=== PATIENT | female | born 1940 | race Caucasian/White ===

== ENCOUNTER 2017-10-14 11:56 | Outpatient (CLI) | payer MEDICARE, OTHER ==
[~2017-10-14] VITALS: Ht 162.6 cm; Wt 77.6 kg
[~2017-10-14 11:56] MED LIST: GLUC-132 PO; GLUC500C2 PO; MULT-1029 PO; OMG1KC PO
[2017-10-14] MEDS ORDERED: TURM500C4 PO (12:09)
[2017-10-14] MEDS ORDERED: GLUC-219 PO (12:09)
[2017-10-14] MEDS ORDERED: CHOL100045 PO (12:09)
[2017-10-14] MEDS ORDERED: VIT1CAPS9 PO (12:09)
[2017-10-14 12:16] VITALS: BP 154/91
[2017-10-14 12:52] LABS: BASOPHILS % (AUTO) 1 % (0-10); EOSINOPHILS # (AUTO) 0.3 10^3/uL (0.0-0.3); EOSINOPHILS % (AUTO) 4 % (0-10); HEMATOCRIT 44 % (35-52); HEMOGLOBIN 14.7 G/DL (11.5-16.0); LYMPHOCYTES # (AUTO) 1.5 X 10^3 (1.0-4.0); LYMPHOCYTES % (AUTO) 20 % (12-44); MEAN CORPUSCULAR HEMOGLOBIN 30 PG (25-34); MEAN CORPUSCULAR HGB CONC 33 G/DL (32-36); MEAN CORPUSCULAR VOLUME 91 FL (80-99); MEAN PLATELET VOLUME 9.3 FL (7.4-10.4); MONOCYTES # (AUTO) 0.6 X 10^3 (0.0-1.0); MONOCYTES % (AUTO) 8 % (0-12); NEUTROPHILS # (AUTO) 5.2 X 10^3 (1.8-7.8); NEUTROPHILS % (AUTO) 68 % (42-75); PLATELET COUNT 204 10^3/uL (130-400); RED BLOOD COUNT 4.86 10^6/uL (4.35-5.85); RED CELL DISTRIBUTION WIDTH 13.6 % (10.0-14.5); WHITE BLOOD COUNT 7.6 10^3/uL (4.3-11.0)
[2017-10-14 12:53] LABS: BILIRUBIN,URINE NEGATIVE (NEGATIVE); CLARITY,URINE CLEAR; COLOR,URINE YELLOW; GLUCOSE, URINE (UA) NEGATIVE (NEGATIVE); KETONES,URINE NEGATIVE (NEGATIVE); LEUKOCYTE ESTERASE ,URINE 3+ (NEGATIVE); NITRITE,URINE NEGATIVE (NEGATIVE); PH,URINE 6.5 (5-9); PROTEIN,URINE NEGATIVE (NEGATIVE); UROBILINOGEN,URINE NORMAL (NORMAL)
--- NOTE | 2017-10-14 13:07 | Diagnostic Imaging Report ---
INDICATION: Preop for knee surgery. TIME OF EXAM 1:08 PM FINDINGS: The heart size is normal. The lungs are clear. No pleural effusion or pneumothorax is identified. The pulmonary vascularity is normal. IMPRESSION: No acute abnormality detected. Dictated by: Dictated on workstation # [id number]
[2017-10-14 13:10] LABS: BUN/CREATININE RATIO 22; CALCIUM 9.7 MG/DL (8.5-10.1); CARBON DIOXIDE 25 MMOL/L (21-32); CHLORIDE 107 MMOL/L (98-107); CREATININE SERUM 0.79 MG/DL (0.60-1.30); GFR ESTIMATED > 60; GLUCOSE 86 MG/DL (70-105); POTASSIUM 4.4 MMOL/L (3.6-5.0); SODIUM 142 MMOL/L (135-145)
[2017-10-14 13:19] LABS: BACTERIA,URINE TRACE /HPF
== END 2017-10-14 12:45 | disposition home or self-care (01) ==
LOC: PREOP 11:56
PROVIDERS: ATTEND Orthopaedic Surgery
DX: Z01.810 Encounter for preprocedural cardiovascular examination (principal); Z01.811 Encounter for preprocedural respiratory examination; Z01.812 Encounter for preprocedural laboratory examination; Z11.2 Encounter for screening for other bacterial diseases; M17.12 Unilateral primary osteoarthritis, left knee; R53.83 Other fatigue
CPT/HCPCS: 36415; 71046; 80048; 81000; 85025; 85610; 86850; 86900; 86901; 87081; 93005

== ENCOUNTER 2017-10-28 06:15 | Inpatient (IN) | payer MEDICARE, OTHER ==
[~2017-10-28] VITALS: Ht 162.6 cm; Wt 77.6 kg
[~2017-10-28 06:15] MED LIST changes: +CHOL100045 PO; +GLUC-219 PO; +TURM500C4 PO; +VIT1CAPS9 PO
[2017-10-28 06:40] VITALS: BP 163/84
[2017-10-28] MEDS ORDERED: CELECOXIB 100 MG (CeleBREX) CAP PO ONE ×2 (06:40→07:15)
[2017-10-28] MEDS ORDERED: GABAPENTIN 600 MG (NEURONTIN) TAB ONE (06:40)
[2017-10-28] MEDS ORDERED: ONDANSETRON 4 MG/2 ML (SDV) Z0FRAN ONE ×2 (06:40→06:52)
[2017-10-28] MEDS ORDERED: ceFAZolin 2 GM IV Premixed 50 ML ONE (06:41)
[2017-10-28] MEDS ORDERED: DEXAMETHASONE 4 MG/ML SDV (DECADRON) ONE (06:41)
[2017-10-28] MEDS ORDERED: LIDOCAINE PF 2% 5 ML (XYLOCAINE) VIAL ONE (06:52)
[2017-10-28] MEDS ORDERED: proPOfol 200 MG/20 ML (DIPRIVAN) VIAL IV ONE (06:52)
[2017-10-28] MEDS ORDERED: SEVOFLURANE (ULTANE) 15 ML INHAL SOLN ONE ×2 (06:52→10:25)
[2017-10-28] MEDS ORDERED: DEXAMETHASONE 10 MG/ML (DECADRON) 1 ML VIAL ONE (06:52)
[2017-10-28] MEDS ORDERED: GENTAMICIN 40 MG/ML 2 ML INJ SDV ONE (06:52)
[2017-10-28] MEDS ORDERED: NEO/POLY/BAC (NEOSPORIN) OINT 15 GM TUBE ONE (06:52)
[2017-10-28] MEDS ORDERED: fentaNYL INJECTION 100 MCG/2 ML AMP ONE ×2 (06:52→08:19)
[2017-10-28] MEDS ORDERED: MIDAZOLAM 2 MG/2 ML (VERSED) VIAL ONE (06:53)
[2017-10-28] MEDS ORDERED: ROPIVACAINE 5MG/ML 30ML VIAL ONE (06:59)
[2017-10-28] MEDS: LACTATED RINGERS 1,000 ML IV PRN ×2 (07:11→08:53)
[2017-10-28] MEDS ORDERED: GABAPENTIN 600 MG (NEURONTIN) TAB PO ONE (07:15)
[2017-10-28] MEDS ORDERED: ONDANSETRON 4 MG/2 ML (SDV) Z0FRAN IVP ONE (07:15)
[2017-10-28] MEDS ORDERED: DEXAMETHASONE 4 MG/ML SDV (DECADRON) IV ONE (07:15)
[2017-10-28] MEDS ORDERED: ceFAZolin 2 GM/50 ML NS 50 ML IV ONE (07:15)
[2017-10-28] MEDS ORDERED: ceFAZolin 2 GM IV Premixed 50 ML IV ONE (07:30)
[2017-10-28] MEDS ORDERED: BISACODYL 10 MG SUPP (DULCOLAX) PR PRN (07:45)
[2017-10-28] MEDS ORDERED: diphenhydrAMINE 50 MG/ML INJ (BENADRYL) IV PRN (07:45)
[2017-10-28] MEDS ORDERED: PROMETHAZINE INJ 25 MG/ML (PHENERGAN) AMP IVP PRN (07:45)
[2017-10-28] MEDS ORDERED: morphine INJ 10 MG/ML 1ML (SYR OR VIAL) IVP PRN ×2 (07:45→10:30)
--- NOTE | 2017-10-28 07:46 | Progress Note-Pre Operative ---
Pre-Operative Progress Note H&P Reviewed The H&P was reviewed, patient examined and no changes noted. Date Seen by Provider: Oct 28, 2017 Time Seen by Provider: 07:40 Date H&P Reviewed: Oct 28, 2017 Time H&P Reviewed: 07:40 Pre-Operative Diagnosis: Primary osteoarthritis Left knee AYO WOODSON DO Oct 28, 2017 7:46 am
[2017-10-28] MEDS ORDERED: INTRA-ARTICULAR IU ONE ×4 (08:00)
[2017-10-28] MEDS ORDERED: ASPIRIN E.C. 325 MG (ECOTRIN) TABLET PO SCH (09:00)
[2017-10-28] MEDS ORDERED: TRANEXAMIC ACID 100 MG/ML 10 ML INJECTION IV ONE (09:27)
--- NOTE | 2017-10-28 09:58 | Progress Note-Post Operative ---
Post-Operative Progess Note Surgeon (s)/Area Development Consultant (s) Surgeon AYO WOODSON DO Area Development Consultant: Abhishek Finch SUPERVISOR DRAWING-Jimena Pre-Operative Diagnosis Primary osteoarthritis Left knee Post-Operative Diagnosis same Procedure & Operative Findings Date of Procedure 10/28/17 Procedure Performed/Findings Left Total Knee Arthroplasty Anesthesia Type General with femoral nerve block Estimated Blood Loss Estimated blood loss (mL): 250 ml Specimens/Packing Specimens Removed none AYO WOODSON DO Oct 28, 2017 9:58 am
[2017-10-28] MEDS ORDERED: ONDANSETRON 4 MG/2 ML (SDV) Z0FRAN IVP PRN (10:30)
[2017-10-28] MEDS ORDERED: HYDROmorphone (DILAUDID) 2 MG/ML VIAL IVP PRN (10:30)
--- NOTE | 2017-10-28 11:36 | Diagnostic Imaging Report ---
INDICATION: Status post left total knee arthroplasty. TIME OF EXAMINATION: 10:32 a.m. FINDINGS: Two views of the left knee demonstrate postoperative changes of total knee arthroplasty. The prosthetic elements are in good position. No fracture or loosening is seen. There are overlying skin gloria noted. IMPRESSION: Satisfactory postop appearance to the left knee. Dictated by: Dictated on workstation # [id number]
[2017-10-28 11:45] VITALS: BP 154/70
[2017-10-28] MEDS ORDERED: D5 1/2 NS 1000 ML IV SOLUTION 1,000 ML IV ONE (12:04)
[2017-10-28] MEDS: D5 1/2 NS 1000 ML IV SOLUTION 1,000 ML IV SCH ×2 (12:10→20:50)
[2017-10-28] MEDS: ASPIRIN E.C. 81 MG (ECOTRIN) TAB PO SCH (13:35)
[2017-10-28] MEDS: HYDROcodone/APAP 10 MG/325 MG (LORTAB) TAB PO PRN ×2 (13:35→22:45)
[2017-10-28] MEDS: ceFAZolin 2 GM IV Premixed 50 ML IV SCH ×2 (15:00→22:39)
[2017-10-28 16:10] VITALS: BP 130/64
[2017-10-28 20:40] VITALS: BP 120/60
[2017-10-28 23:17] VITALS: BP 121/59
[2017-10-29] MEDS: D5 1/2 NS 1000 ML IV SOLUTION 1,000 ML IV SCH ×2 (00:54→13:19)
--- NOTE | 2017-10-29 02:38 | OPERATIVE REPORT ---
DATE OF SERVICE: PREOPERATIVE DIAGNOSIS: Primary osteoarthritis, left knee. POSTOPERATIVE DIAGNOSIS: Primary osteoarthritis, left knee. PROCEDURE: Left total knee arthroplasty. SURGEON: Ayo Woodson DO. HEALTH COORDINATOR: IFEOMA Reeves. SURGICAL INSPECTOR AIR CARRIER DUTIES: Abhishek Finch, certified surgical tech/first assistant was utilized throughout the entire procedure for patient positioning, retraction of soft tissues, placement of metallic implants, wound closure, dressing application, and patient transfer. ANESTHESIA: General with femoral nerve block. ESTIMATED BLOOD LOSS: 250 mL. COMPLICATIONS: None. INDICATIONS OF FINDINGS: The patient is a 77-year-old female seen with chief complaint of progressive left knee pain with a varus deformity of both the right and left knee. X-rays reveals severe advanced primary osteoarthritis, left knee. The patient was taken to surgery where a total knee arthroplasty was performed on the left without complication utilizing the Biomet Psonarguard total knee system with a press-fit 62.5 mm femoral component, a 71 mm cemented fixed I-beam tibial component, a 12 mm anterior stabilized tibial bearing implant with a 31 mm 3-pronged all-polyethylene cemented standard patellar component. Palacos bone cement with gentamicin was used. PROCEDURE IN DETAIL: The patient was seen by anesthesia preoperatively and under ultrasound guidance, a femoral nerve block was performed on the left to decrease postop pain and decrease the amount of medication required during the surgical procedure. The patient was transported to the operating room where general inhalation anesthetic was administered. A well-padded pneumatic tourniquet was placed about the upper aspect of left thigh. A ChloraPrep and sterile drape to left lower extremity was performed. The left leg was elevated, exsanguinated and the tourniquet was inflated to 300 mmHg pressure. An anterior longitudinal midline incision was made over the anterior surface of the left knee. The incision was deepened through a medial parapatellar incision. The patella was subluxed laterally. Osteophytes from the distal femur and the proximal medial tibia were removed with a bone rongeur. Remnants of the medial and lateral menisci were excised. A fire pilot hole was then drilled in the distal femur. An intramedullary diana was inserted. Utilizing a 6 degree valgus cutting angle, a distal femoral cutting guide was assembled and distal femoral osteotomy was completed. The distal femur was sized to a 62.5 mm femoral component. A 4 way cutting block was assembled. Anterior, posterior, and chamfer cuts to the distal femur were made. The tibia was subluxed anteriorly. A fire pilot hole was then drilled in the proximal tibia. An intramedullary diana was inserted, measuring off the exposed bone of the proximal medial tibia. A proximal tibial cutting guide was assembled and a proximal tibial osteotomy was completed. The proximal tibia was sized to a 71 mm component. The knee was taken to full extension with a 10 mm spacer. The patient continued to have a slight amount of mismatch in the space between the medial and lateral compartment. The proximal tibial cutting guide was assembled and a repeat cut through the proximal medial tibia was performed. The proximal tibia was then rasped. The knee could then be fully extended with no varus valgus instability and symmetric balancing. Osteophytes from the rim of the patella were removed with a bone rongeur. The posterior aspect of the patella was resected through a cutting guide and drilled through a drill guide. Provisional components were inserted. The knee was cycled through a range of motion. Rotation of the tibial component was noted marked on the proximal tibia. The proximal tibia was then broached to accept the I-beam stem portion of the tibial implant. The bony surfaces were irrigated extensively with normal saline solution. Palacos bone cement was then mixed. This was then pressurized in the proximal tibia and the tibial component was cemented in place. The femoral component was press-fit in place. The knee was taken into full extension with a provisional tibial bearing implant. The patellar component was cemented in place. Excess cement was removed. The cement was allowed to set. The knee again was cycled through a range of motion was found to be stable with a 12 mm tibial bearing implant. The provisional implant was removed. The 12 mm anterior stabilized tibial bearing implant was then inserted and locked anteriorly with a locking bar. The knee again was cycled through a range of motion with full extension noted and no evidence of instability in midrange flexion or full flexion. The tourniquet was released. Hemostasis was obtained with electrocautery. The knee was placed in 90 degrees of flexion. The medial retinaculum was closed with multiple interrupted [id number] sutures of #1 Vicryl reinforced with a running suture of #1 Stratafix. Subcutaneous tissues were closed in layers with 0 and 2-0 Vicryl suture. The skin was closed with gloria. An Adaptic Neosporin bulky dressing was placed about the left knee. The patient was awakened and was transferred to postoperative recovery with anesthesia personnel present in satisfactory condition. Job ID: [id number] DocumentID: [id number] Dictated Date: 10/28/2017 15:42:11 Lumber Salvager Date: 10/29/2017 00:38:18 Dictated By: AYO WOODSON DO
[2017-10-29 04:00] VITALS: BP 121/59
[2017-10-29 06:28] LABS: HEMOGLOBIN 11.6 G/DL (11.5-16.0); MEAN PLATELET VOLUME 9.8 FL (7.4-10.4); RED BLOOD COUNT 3.79 10^6/uL (4.35-5.85); RED CELL DISTRIBUTION WIDTH 13.3 % (10.0-14.5); WHITE BLOOD COUNT 13.6 10^3/uL (4.3-11.0)
[2017-10-29 06:58] LABS: BUN/CREATININE RATIO 19; CALCIUM 8.4 MG/DL (8.5-10.1); CARBON DIOXIDE 23 MMOL/L (21-32); CHLORIDE 105 MMOL/L (98-107); CREATININE SERUM 0.85 MG/DL (0.60-1.30); GFR ESTIMATED > 60; GLUCOSE 199 MG/DL (70-105); POTASSIUM 4.2 MMOL/L (3.6-5.0); SODIUM 139 MMOL/L (135-145)
--- NOTE | 2017-10-29 06:58 | Progress Note (SOAP) ---
Subjective Date Seen by Provider: Oct 29, 2017 Time Seen by Provider: 06:57 Subjective/Events-last exam Currently no complaints. POD #1 s/p left TKA. Daughters at bedside. Pain controlled and eating breakfast. Objective Exam Vital Signs Date Time Temp Pulse Resp B/P (MAP) Pulse Ox O2 Delivery O2 Flow Rate FiO2 10/29/17 04:00 97.9 90 18 121/59 (79) 95 Room Air 10/28/17 23:17 97.1 92 18 121/59 (79) 96 Room Air 10/28/17 20:40 96.5 89 18 120/60 (80) 95 Room Air 10/28/17 20:15 Room Air 10/28/17 16:10 97.8 87 18 130/64 (86) 93 Room Air 10/28/17 12:00 Nasal Cannula 2.00 10/28/17 11:45 96.4 99 16 154/70 (98) 96 Nasal Cannula 2.00 I & O 10/29/17 07:00 Intake Total 4060 ml Output Total 250 ml Balance 3810 ml Capillary Refill : Less Than 3 Seconds General Appearance: No Apparent Distress Extremity: Normal Capillary Refill, Normal Inspection, Normal Range of Motion, No Calf Tenderness, No Pedal Edema Neurologic/Psychiatric: Alert, Oriented x3, No Motor/Sensory Deficits, Normal Mood/Affect Skin: Normal Color, Warm/Dry (dressing left knee CDI) Results Lab Laboratory Tests 10/29/17 05:35: White Blood Count 13.6H, Red Blood Count 3.79L, Hemoglobin 11.6, Hematocrit 35, Mean Corpuscular Volume 92, Mean Corpuscular Hemoglobin 31, Mean Corpuscular Hemoglobin Concent 33, Red Cell Distribution Width 13.3, Platelet Count 193, Mean Platelet Volume 9.8 Assessment/Plan Assessment/Plan Assess & Plan/Chief Complaint A: s/p left TKA P: Start physical therapy and CPM. enrollment services dean to eval for home with home healthcare vs IRF Clinical Quality Measures DVT/VTE Risk/Contraindication: Risk Factor Score Per Nursin RFS Level Per Nursing on Admit: 4+=Very High TERESA FRANCIS APRN Oct 29, 2017 6:58 am
[2017-10-29] MEDS: ASPIRIN E.C. 81 MG (ECOTRIN) TAB PO SCH (07:58)
[2017-10-29] MEDS: HYDROcodone/APAP 10 MG/325 MG (LORTAB) TAB PO PRN ×2 (07:58→15:25)
[2017-10-29] MEDS: KETOROLAC 15 MG/ML VIAL IVP PRN ×2 (07:59→15:25)
[2017-10-29] MEDS: ENOXAPARIN 40 MG/0.4 ML (LOVENOX) SYR SC SCH (07:59)
[2017-10-29 08:00] VITALS: BP 125/58
[2017-10-29] MEDS ORDERED: SENNA W/DOCUSATE (SENOKOT S) TABLET PO SCH (09:00)
--- NOTE | 2017-10-29 09:56 | Physical Therapy Evaluation ---
PT Evaluation-General Medical Diagnosis Admission Date Oct 28, 2017 at 06:15 Medical Diagnosis: osteoarthritis Onset Date: Oct 28, 2017 Therapy Diagnosis Therapy Diagnosis: debility Height/Weight Height (Feet): 5 Height (Inches): 4.00 Weight (Pounds): 171 Weight (Ounces): 0.0 Precautions Precautions/Isolations: Standard Precautions Weight Bear Status Right Lower Extremity: Right Full Weight Bearing Left Lower Extremity: Left Full Weight Bearing Referral Physician: Denita Reason for Referral: Evaluation/Treatment Medical History Pertinent Medical History: Arthritis Current History s/p elective right TKR Reviewed History: Yes Social History Home: Single Level Current Living Status: Alone Entry Into Home: Stairs With Railing PT Steps Into Home: 3 Prior/Core FIM Prior Level of Function Functional [place] Measure 0=Not Assessed/NA 4=Minimal Assistance 1=Total Assistance 5=Supervision or Setup 2=Maximal Assistance 6=Modified [place] 3=Moderate Assistance 7=Complete [place] Bed Mobility: 7 Transfers (B,C,W/C) (FIM): 7 Gait: 7 Locomotion: 7 PT Evaluation-Current Subjective Patient agrees to PT. Pain Numeric Pain Scale: 7 Location: Right Location Body Site: Knee Pain Description: Acute Objective Patient Orientation: Normal For Age Problem Solving: Good Attachments: IV ROM/Strength ROM Lower Extremities right knee flexion 64 degrees AROM/-5 AROM extension left LE WNL Strength Lower Extremities right knee flexion/extension 3/5; hip flexion 4/5; DF/PF 4/5 left knee flexion/extension 4/5; hip flexion 4/5; DF/PF 4/5 Integumentary/Posture Integumentary refer to nursing notes Bowel Incontinence: No Bladder Incontinence: No Posture WFL Neuromuscular (Tone, Coordination, Reflexes) grossly intact Sensory Vision: Wears Glasses Hearing: Functional Sensation Right Lower Extremit: Intact Sensation Left Lower Extremity: Intact Transfers Functional [place] Measure 0=Not Assessed/NA 4=Minimal Assistance 1=Total Assistance 5=Supervision or Setup 2=Maximal Assistance 6=Modified [place] 3=Moderate Assistance 7=Complete [place] Transfers (B, C, W/C) (FIM): 5 Scootin Rollin Supine to/from Sit: 5 Sit to/from Stand: 5 Gait Mode of Locomotion: Walk Anticipated Mode of Locomotion: Walk Gait (FIM): 5 Distance (FIM): 3=150 ft Distance: 200' Gait Level of Assist: 5 Gait Assistive Device: FWW Comments/Gait Description reciprocal pattern Balance Sitting Static: Normal Sitting Dynamic: Normal Standing Static: Normal Standing Dynamic: Normal Treatment bilateral LE exercises 25 reps AP, LAQ, hip flexion Assessment/Needs 77 y.o. female, will benefit from short term skilled PT to address functional mobility and strength to ensure safe return to home and home health intervention. Rehab Potential: Good PT Short Term Goals Short Term Goals Time Frame: Nov 01, 2017 Transfers (B,C,W/C) (FIM): 6 Gait (FIM): 6 Distance (FIM): 3=150 ft Gait Distance Comment: 250' Gait Level of Assist: 6 Gait Assistive Device: FWW Stairs (FIM): 5 # of Steps: 3 Stairs Level of Assist: 5 PT Plan Treatment/Plan Treatment Plan: Continue Plan of Care Treatment Plan: Education, Functional Activity Cal, Functional Strength, Gait , Safety, Therapeutic Exercise, Transfers Treatment Duration: Nov 01, 2017 Frequency: 7 times per week Estimated Hrs Per Day: .5 hour per day Patient and/or Family Agrees t: Yes Time/GCodes Time In: 820 Time Out: 844 Total Billed Treatment Time: 24 Total Billed Treatment 1 visit EVMod 24 min THAI CERVANTES PT Oct 29, 2017 09:56
--- NOTE | 2017-10-29 10:57 | Occupational Therapy Eval ---
OT Evaluation-General/PLF Medical Diagnosis Admission Date Oct 28, 2017 at 06:15 Medical Diagnosis: osteoarthritis, L TKA Onset Date: Oct 28, 2017 Therapy Diagnosis Therapy Diagnosis: decr self care Height/Weight Height (Feet): 5 Height (Inches): 4.00 Weight (Pounds): 171 Weight (Ounces): 0.0 Precautions Precautions/Isolations: Fall Prevention, Standard Precautions Safety Interventions: None Referral Physician: Denita Referral Reason: Evaluation/Treatment Medical History Pertinent Medical History: Arthritis Additional Medical History R shoulder surgery (rotator cuff) Current History Elective L total knee Reviewed History: Yes Social History Home: Single Level (laundry in basement) Current Living Status: Alone Entry Into Home: Stairs With Railing Steps Into Home: 3 ADL-Prior Level of Function ADL PLOF Comments Pt reported that she has been able to manage all of her basic self care needs and all of her home needs including laundry, cooking, cleaning. 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 pain reported 0/10 but she had some discomfort from where the tourniquet was Appearance Alert, cooperative Mental Status/Objective Patient Orientation: Person, Place, Time, Situation Attachments: Polar Pack, Saline Lock Current Glasses/Contacts: Yes Hand Dominance: Right Upper Extremity ROM grossly WFL bilat Upper Extremity Strength grossly 4+/5 bilat ADL-Treatment ADL-Current Pt took a walk with PT this morning for 200' with SBA, FWW and transfers were SBA. Pt education on modified technique for putting pants on if she chooses to have them on for her afternoon walk. Functional [place] Measure 0=Not Assessed/NA 4=Minimal Assistance 1=Total Assistance 5=Supervision or Setup 2=Maximal Assistance 6=Modified [place] 3=Moderate Assistance 7=Complete IndependenceIRFPAI Quality Coding Scale 6 Independent with activity with or without an assistive device 5 Patient requires set up or clean up by helper. Patient completes activity by themselves 4 Supervision or touching assist (CGA). [place] provide cues , steadying assist 3 The helper provides less than half the effort to complete the activity 2 The helper provides more than half the effort to complete the activity 1 Dependent. The helper does all the effort to complete an activity 7 Patient refused to complete or attempt activity 9 The patient did not perform the activity before the current illness or injury 88 Not attempted due to Medical conditions or safety concerns Education OT Patient Education: Modified ADL techniques, Purpose of tx/functional activities, Rehab process, Safety issues Teaching Recipient: Patient Teaching Methods: Discussion Response to Teaching: Verbalize Understanding OT Short Term Goals Short Term Goals Transfers (B,C,W/C) (FIM): 6 OT Manager Data Goals Mcc Goals Time Frame: Nov 01, 2017 Grooming(FIM): 6 Bathing(FIM): 5 Upper Body Dressing(FIM): 5 Lower Body Dressing(FIM): 5 Toileting(FIM): 6 Toilet/Commode Transfer(FIM): 6 Additional Goals: 2-Verbalize Understanding, 3-ImproveStrength/Cal 1=Demonstrate adherence to instructed precautions during ADL tasks. 2=Patient will verbalize/demonstrate understanding of assistive devices/ modifications for ADL. 3=Patient will improve strength/tolerance for activity to enable patient to perform ADL's. OT Education/Plan Problem List/Assessment Assessment: Impaired Self-Care Skills Pt would benefit from skilled OT to increase her independence in basic self care to allow her to safely return to her home to live independently after L total knee replacement Discharge Recommendations Plan/Recommendations: Continue POC Treatment Plan/Plan of Care Treatment,Training & Education: Yes Patient would benefit from OT for education, treatment and training to promote independence in ADL's, mobility, safety and/or upper extremity function for ADL' s. Plan of Care: ADL Retraining Treatment Duration: Nov 01, 2017 Frequency: 4 times per week Estimated Hrs Per Day: .5 hour per day (.25 to .5) Agreement: Yes Rehab Potential: Good Time/GCodes Start Time: 10:33 Stop Time: 10:45 Total Time Billed (hr/min): 12 Billed Treatment Time visit, 12 minutes evaluation low intensity SRINIVASA MORRISON OT Oct 29, 2017 10:57
[2017-10-29 12:00] VITALS: BP 129/62
--- NOTE | 2017-10-29 14:01 | Physical Therapy Daily Note ---
PT Daily Note-Current Subjective Patient agrees to PT. Pain Numeric Pain Scale: 8 Location: Right Location Body Site: Knee Pain Description: Acute Mental Status Patient Orientation: Normal For Age Attachments: IV Transfers Functional [place] Measure 0=Not Assessed/NA 4=Minimal Assistance 1=Total Assistance 5=Supervision or Setup 2=Maximal Assistance 6=Modified [place] 3=Moderate Assistance 7=Complete IndependenceIRFPAI Quality Coding Scale 6 Independent with activity with or without an assistive device 5 Patient requires set up or clean up by helper. Patient completes activity by themselves 4 Supervision or touching assist (CGA). [place] provide cues , steadying assist 3 The helper provides less than half the effort to complete the activity 2 The helper provides more than half the effort to complete the activity 1 Dependent. The helper does all the effort to complete an activity 7 Patient refused to complete or attempt activity 9 The patient did not perform the activity before the current illness or injury 88 Not attempted due to Medical conditions or safety concerns Transfers (B, C, W/C) (FIM): 5 Scootin Rollin Supine to/from Sit: 5 Sit to/from Stand: 5 Weight Bearing Right Lower Extremity: Right Full Weight Bearing Left Lower Extremity: Left Full Weight Bearing Gait Training Gait (FIM): 5 Distance (FIM): 3=150 ft Distance: 300' Gait Level of Assist: 5 Gait Assistive Device: FWW reciprocal pattern Exercises Supine Ex: Ankle pumps, Quad Set, Heel Slides, Straight leg raise Supine Reps: 15 Treatments CPM 0-50 degrees Assessment Patient progressing with treatment plan and will dismiss to home this week with home health intervention. PT Short Term Goals Short Term Goals Time Frame: Nov 01, 2017 Transfers (B,C,W/C) (FIM): 6 Gait (FIM): 6 Distance (FIM): 3=150 ft Gait Distance Comment: 250' Gait Level of Assist: 6 Gait Assistive Device: FWW Stairs (FIM): 5 # of Steps: 3 Stairs Level of Assist: 5 PT Plan Treatment/Plan Treatment Plan: Continue Plan of Care Treatment Plan: Education, Functional Activity Cal, Functional Strength, Gait , Safety, Therapeutic Exercise, Transfers Treatment Duration: Nov 01, 2017 Frequency: 7 times per week Estimated Hrs Per Day: .5 hour per day Patient and/or Family Agrees t: Yes Time/GCodes Time In: 1255 Time Out: 1320 Total Billed Treatment Time: 25 Total Billed Treatment 1 visit EX 15 min GT 10 min THAI CERVANTES PT Oct 29, 2017 14:01
--- NOTE | 2017-10-29 14:10 | Anesthesia-General Post-Op ---
General Patient Condition Mental Status/LOC: Same as Preop Cardiovascular: Satisfactory Nausea/Vomiting: Absent Respiratory: Satisfactory Pain: Controlled Complications: Absent Post Op Complications Complications None Follow Up Care/Instructions Patient Instructions None needed. Anesthesia/Patient Condition Patient Condition Patient is doing well, no complaints, stable vital signs, no apparent adverse anesthesia problems. Pt is up walking and doing well, neurovascularly intact after femoral nerve block. DAVY PARSONS DO Oct 29, 2017 14:10
[2017-10-29 15:51] VITALS: BP 149/65
--- NOTE | 2017-10-29 19:16 | Consultation ---
History of Present Illness History of Present Illness Patient Consulted On(sarthak/time) 10/29/17 19:11 Date Seen by Provider: Oct 29, 2017 Time Seen by Provider: 12:30 History of Present Illness This is a 77 year old female who is S/P left TKR by Dr. Barger. I am asked to consult for medical management. She reports no BM since surgery. Pain is well controlled. Her chemistry did show an elevated glucose of 199. Allergies and Home Medications Allergies Coded Allergies: clindamycin (Verified Allergy, Unknown, joint pain, 10/14/17) levofloxacin (Verified Allergy, Unknown, joint pain, 10/14/17) Home Medications Cholecalciferol (Vitamin D3) 1,000 Unit Tablet, 1,000 UNIT PO BID, (Reported) Glucosamine/D3/Boswellia Kayla 1 Each Tablet, 1 TAB PO DAILY, (Reported) Turmeric/Turmeric Root Extract 1 Each Capsule, 500 MG PO BID, (Reported) Vit C/Vit E/Lutein/Min/[place]-3 1 Each Capsule, 1 CAP PO DAILY, (Reported) Past Weswhju-Nganix-Zxhvno Hx Patient Social History Alcohol Use: Denies Use Recreational Drug Use: No Smoking Status: Never a Smoker Recent Foreign Travel: No Contact w/Someone Who Travel: No Recent Infectious Disease Expo: No Recent Hopitalizations: No Immunizations Up To Date Date of Pneumonia Vaccine: Jun 16, 2016 Date of Influenza Vaccine: Jun 16, 2017 Seasonal Allergies Seasonal Allergies: Yes Surgeries History of Surgeries: Yes (right shoulder) Respiratory History of Respiratory Disorde: No Cardiovascular History of Cardiac Disorders: No Neurological History of Neurological Disord: No Genitourinary History of Genitourinary Disor: No Gastrointestinal History of Gastrointestinal Di: No Musculoskeletal History of Musculoskeletal Dis: Yes Musculoskeletal Disorders: Arthritis Endocrine History of Endocrine Disorders: No HEENT History of HEENT Disorders: No (glasses, ) Cancer History of Cancer: No Psychosocial History of Psychiatric Problem: No Integumentary History of Skin or Integumenta: No Blood Transfusions History of Blood Disorders: No Family Medical History Family Medial History: Arthritis 19 FATHER 19 MOTHER Colon cancer 19 FATHER FH: breast cancer 19 MOTHER Review of Systems-General Constitutional: No no symptoms reported, No see HPI, No chills, No diaphoresis , No dizziness, No fever, No malaise, No weakness, No weight gain, No weight loss, No other EENTM: No see HPI, No no symptoms reported, No ear discharge, No hearing loss, No ear pain, No blurred vision, No double vision, No eye pain, No tearing, No vision loss, No dental problems, No hoarseness, No mouth pain, No mouth swelling , No epistaxis, No nose congestion, No nose pain, No throat pain, No throat swelling, No other Respiratory: No no symptoms reported, No see HPI, No cough, No dyspnea on exertion, No hemoptysis, No orthopnea, No phlegm, No short of breath, No stridor , No wheezing, No other Cardiovascular: No no symptoms reported, No see HPI, No chest pain, No edema, No Hx of Intervention, No palpitations, No syncope, No vascular heart diseas, No other Gastrointestinal: No RUQ, No LUQ, No RLQ, No LLQ, No no symptoms reported, No see HPI, No abdominal pain, No constipation, No diarrhea, No dysphagia, No hematemesis, No heartburn, No jaundice, No loss of appetite, No melena, No nausea, No vomiting, No other Genitourinary: No no symptoms reported, No see HPI, No decreased output, No discharge, No dysuria, No frequency, No hematuria, No hesitancy, No incontinence , No nocturia, No pain, No other Musculoskeletal: joint pain (left knee) Skin: No no symptoms reported, No see HPI, No change in color, No change in hair/nails, No dryness, No hx of skin cancer, No lesions, No lumps, No pruritus , No rash, No other Psychiatric/Neurological: Denies No Symptoms Reported, Denies See HPI, Denies Anxiety, Denies Depressed, Denies Emotional Problems, Denies Headache, Denies Numbness, Denies Paresthesia, Denies Pre-Existing Deficit, Denies Seizure, Denies Tingling, Denies Tremors, Denies Weakness, Denies Other Physical Exam-General Problems Physical Exam Vital Signs Vital Signs - First Documented 10/28/17 10/28/17 06:40 11:45 Temp 97.0 Pulse 88 Resp 18 B/P (MAP) 163/84 (110) Pulse Ox 97 O2 Delivery Room Air O2 Flow Rate 2.00 Capillary Refill : Less Than 3 Seconds General Appearance: no apparent distress HEENT: normal ENT inspection Neck: supple Cardiovascular: regular rate, rhythm Gastrointestinal: normal bowel sounds, non tender, soft Rectal: deferred Back: no CVA tenderness Extremities: non-tender, no pedal edema, no calf tenderness Neurologic/Psychiatric: alert, normal mood/affect, oriented x 3 Skin: warm/dry, other (left knee dressing dry and in place) Comments Laboratory Tests 10/29/17 05:35: White Blood Count 13.6H, Red Blood Count 3.79L, Hemoglobin 11.6, Hematocrit 35, Mean Corpuscular Volume 92, Mean Corpuscular Hemoglobin 31, Mean Corpuscular Hemoglobin Concent 33, Red Cell Distribution Width 13.3, Platelet Count 193, Mean Platelet Volume 9.8, Sodium Level 139, Potassium Level 4.2, Chloride Level 105, Carbon Dioxide Level 23, Anion Gap 11, Blood Urea Nitrogen 16, Creatinine 0.85, Estimat Glomerular Filtration Rate > 60, BUN/Creatinine Ratio 19, Glucose Level 199H, Calcium Level 8.4L Assessment/Plan Assessment/Plan Admission Diagnosis/Plan 1. Left Knee OA--S/P Left TKR--pain control, PT/OT, DVT prophylaxis with lovenox 2. Constipation--increase senokot S to 2 po BID 3. Hyperglycemia--repeat Chemistry as well as HbA1C Clinical Quality Measures DVT/VTE Risk/Contraindication: Risk Factor Score Per Nursin RFS Level Per Nursing on Admit: 4+=Very High BELKIS CHAUDHARY DO Oct 29, 2017 19:16
[2017-10-29] MEDS: SENNA W/DOCUSATE (SENOKOT S) TABLET PO SCH (19:57)
[2017-10-29 20:00] VITALS: BP 155/74
[2017-10-30] VITALS: BP 137/73
[2017-10-30] MEDS: HYDROcodone/APAP 10 MG/325 MG (LORTAB) TAB PO PRN (00:31)
[2017-10-30] MEDS: ONDANSETRON 4 MG/2 ML (SDV) Z0FRAN IVP PRN ×3 (05:58→20:36)
[2017-10-30 06:14] LABS: HEMOGLOBIN 12.1 G/DL (11.5-16.0); MEAN PLATELET VOLUME 9.1 FL (7.4-10.4); RED BLOOD COUNT 3.98 10^6/uL (4.35-5.85); RED CELL DISTRIBUTION WIDTH 13.3 % (10.0-14.5); WHITE BLOOD COUNT 8.7 10^3/uL (4.3-11.0)
[2017-10-30 06:35] LABS: BUN/CREATININE RATIO 17; CALCIUM 9.1 MG/DL (8.5-10.1); CARBON DIOXIDE 25 MMOL/L (21-32); CHLORIDE 109 MMOL/L (98-107); CREATININE SERUM 0.71 MG/DL (0.60-1.30); GFR ESTIMATED > 60; GLUCOSE 109 MG/DL (70-105); POTASSIUM 4.4 MMOL/L (3.6-5.0); SODIUM 141 MMOL/L (135-145)
[2017-10-30 08:00] VITALS: BP_SYST 177; BP_SYST 183; BP_DIAS 82; BP_DIAS 85
--- NOTE | 2017-10-30 08:04 | D/C HH Face to Face Order ---
D/C Face to Face Orders Instructions for Patient Patient Instructions/FollowUp: f/u in 2 1/[address] Barger Please refer to Dr. Barger's Standard TKA instructions for more info Physician to follow Patient: Dr. Barger Discharge Diet for Home: No Restrictions, Regular Diet Patient Problems: s/p left TKA Primary OA Bilateral Knees Goals for Patient: independence with ADLs Patient Data-Allergies,Ht & Wt Patient Allergies: Coded Allergies: clindamycin (Verified Allergy, Unknown, joint pain, 10/14/17) levofloxacin (Verified Allergy, Unknown, joint pain, 10/14/17) Height (Feet): 5 Height (Inches): 4.00 Weight (Pounds): 171 Weight (Ounces): 0.0 Home Health Need/Face to Face Date of Face to Face: Oct 30, 2017 Clinical Findings: Generalized weakness and fatigue, Pain with ambulation, Unsteady gait I have seen Pt [id number]: Yes Discharged To: Home Diagnosis/Conditions: s/p left TKA Primary OA Bilateral Knees Problems/Diagnosis/Condition: Patient is Homebound due to: Keyur fall risk due to instabilty, Pain w/ ambulation Homebound Status Due to the above stated illness, injury or surgical procedure (medical condition or diagnosis) and associated clinical findings, the patient is homebound because of his/her inability to leave home except with aid of a supportive device and/or person AND leaving the home requires a considerable and taxing effort or is medically contraindicated. Pt req the following assistanc: [facility] Nursing Orders Home Health Services Order: Nursing Services, Physical Therapy-Evaluate & Treat remove gloria and apply steri strips on 11/07/17 arrange for CPM machine to be used 6 hrs per day Home Health Infusion Therapy Site Location: Forearm Therapy Orders Therapy Orders: Physical Therapy Therapy Specific Orders: Gait training, Increase strength/endurance, Restore ROM physical therapy 5x/week x 2 weeks to assist with ambulation and treat ROM standard post op TKA protocols CPM machine 6 hrs per day, advance as tolerated Continue polar care unit and elevation as needed for pain/swelling Continue bilateral THU [place] Certify Stmt I certify that this patient is under my care and that I, a nurse practitioner or a physician; a assistant paralegal working with me, had a face to face encounter that - meets the physician face to face encounter requirements with this patient as dated. TERESA FRANCIS APRN Oct 30, 2017 08:04
[2017-10-30] MEDS: SENNA W/DOCUSATE (SENOKOT S) TABLET PO SCH ×2 (08:16→20:31)
[2017-10-30] MEDS: ASPIRIN E.C. 81 MG (ECOTRIN) TAB PO SCH (08:16)
[2017-10-30] MEDS: ENOXAPARIN 40 MG/0.4 ML (LOVENOX) SYR SC SCH (08:17)
--- NOTE | 2017-10-30 10:49 | Occupational Ther Daily Note ---
OT Current Status-Daily Note Subjective Pt seen in room, up in recliner, agreeable to OT. Pt reported she was nauseated from not having a BM. Nursing notified. Appearance Alert, cooperative Mental Status/Objective Functional [place] Measure 0=Not Assessed/NA 4=Minimal Assistance 1=Total Assistance 5=Supervision or Setup 2=Maximal Assistance 6=Modified [place] 3=Moderate Assistance 7=Complete [place] ADL-Treatment Pt education use of dressing stick and sock aid, with return demonstration with occasional additional instruction. Pt educ on availability of hip kit and sock aid at local DME and info shared with her SW. Also discussed modified technique for donning socks and pants. Pt needed to toilet. Got up and down from recliner without assistance and walked SBA to bathroom. pt got on and off toilet herself and managed clothing/hygiene without help. Tall toilet, grab bar, FWW. Pt returned to recliner, sitting down without help. Pt left with all needs met. Education OT Patient Education: Modified ADL techniques, Purpose of tx/functional activities, Use of adapted equipment Teaching Recipient: Patient Teaching Methods: Demonstration, Discussion Response to Teaching: Return Demonstration OT Short Term Goals Short Term Goals Transfers (B,C,W/C) (FIM): 6 1=Demonstrate adherence to instructed precautions during ADL tasks. 2=Patient will verbalize/demonstrate understanding of assistive devices/ modifications for ADL. 3=Patient will improve strength/tolerance for activity to enable patient to perform ADL's. OT Cutting Pressman Goals Mcfp Goals Time Frame: Nov 01, 2017 Grooming(FIM): 6 Bathing(FIM): 5 Upper Body Dressing(FIM): 5 Lower Body Dressing(FIM): 5 Toileting(FIM): 6 Toilet/Commode Transfer(FIM): 6 Additional Goals: 2-Verbalize Understanding, 3-ImproveStrength/Cal 1=Demonstrate adherence to instructed precautions during ADL tasks. 2=Patient will verbalize/demonstrate understanding of assistive devices/ modifications for ADL. 3=Patient will improve strength/tolerance for activity to enable patient to perform ADL's. OT Education/Plan Problem List/Assessment Pt would benefit from skilled OT to increase her independence in basic self care to allow her to safely return to her home to live independently after L total knee replacement Discharge Recommendations Plan/Recommendations: Continue POC Treatment Plan/Plan of Care Patient would benefit from OT for education, treatment and training to promote independence in ADL's, mobility, safety and/or upper extremity function for ADL' s. Plan of Care: ADL Retraining Treatment Duration: Nov 01, 2017 Frequency: 4 times per week Estimated Hrs Per Day: .5 hour per day (.25 to .5) Agreement: Yes Rehab Potential: Good Time/GCodes Start Time: 10:10 Stop Time: 10:30 Total Time Billed (hr/min): 20 Billed Treatment Time visit, 20 minutes ADL SRINIVASA MORRISON OT Oct 30, 2017 10:49
[2017-10-30] MEDS ORDERED: MILK OF MAGNESIA 400 MG/5 ML 30 ML UDC PO NR (11:45)
--- NOTE | 2017-10-30 12:04 | Physical Therapy Daily Note ---
PT Daily Note-Current Subjective Pt reclined in recliner upon arrival. Pt agrees to PT despite reporting constipation and nausea. Pain Numeric Pain Scale: 5-Moderate Pain Location: Left Location Body Site: Knee Pain Description: Ache Mental Status Patient Orientation: Person, Place, Time, Situation Attachments: Polar Pack Transfers Functional [place] Measure 0=Not Assessed/NA 4=Minimal Assistance 1=Total Assistance 5=Supervision or Setup 2=Maximal Assistance 6=Modified [place] 3=Moderate Assistance 7=Complete IndependenceIRFPAI Quality Coding Scale 6 Independent with activity with or without an assistive device 5 Patient requires set up or clean up by helper. Patient completes activity by themselves 4 Supervision or touching assist (CGA). [place] provide cues , steadying assist 3 The helper provides less than half the effort to complete the activity 2 The helper provides more than half the effort to complete the activity 1 Dependent. The helper does all the effort to complete an activity 7 Patient refused to complete or attempt activity 9 The patient did not perform the activity before the current illness or injury 88 Not attempted due to Medical conditions or safety concerns Scootin Sit to/from Stand: 5 Weight Bearing Right Lower Extremity: Right Full Weight Bearing Left Lower Extremity: Left Full Weight Bearing Gait Training Distance (FIM): 3=150 ft Distance: 200' Gait Assistive Device: FWW Pt walks with slight stiffness Treatments Pt transfers from recliner to standing using FWW at SBA. Pt uses restroom at SBA then ambulates in hallway using FWW at SBA. Pt returns to recliner to rest at end of tx with all needs met. Pt had already used CPM for 3 hrs this morning. PT will use in PM. Assessment Current Status: Good Progress Pt walks well and is SBA with all transfers. Pt continues to have issues with constipation, nausea & indigestion. PT Short Term Goals Short Term Goals Time Frame: Nov 01, 2017 Transfers (B,C,W/C) (FIM): 6 Gait (FIM): 6 Distance (FIM): 3=150 ft Gait Distance Comment: 250' Gait Level of Assist: 6 Gait Assistive Device: FWW Stairs (FIM): 5 # of Steps: 3 Stairs Level of Assist: 5 PT Plan Problem List Problem List: Activity Tolerance, Gait Treatment/Plan Treatment Plan: Continue Plan of Care Treatment Plan: Education, Functional Activity Cal, Functional Strength, Gait , Safety, Therapeutic Exercise, Transfers Treatment Duration: Nov 01, 2017 Frequency: 7 times per week Estimated Hrs Per Day: .5 hour per day Patient and/or Family Agrees t: Yes Safety Risks/Education Patient Education: Transfer Techniques, Correct Positioning, Safety Issues Teaching Recipient: Patient Teaching Methods: Discussion Response to Teaching: Verbalize Understanding Time/GCodes Time In: 1055 Time Out: 1137 Total Billed Treatment Time: 42 Total Billed Treatment GT (15m), EX (15m) & FA (12m) PRINCESS RAMOS PTA Oct 30, 2017 12:04
[2017-10-30] MEDS ORDERED: SENN-20 PO (13:14)
[2017-10-30] MEDS ORDERED: HYDR-3820 PO (13:14)
[2017-10-30] MEDS ORDERED: ASPI-983 PO (13:14)
[2017-10-30] MEDS ORDERED: TRAM50TA2 PO (13:14)
[2017-10-30] MEDS ORDERED: FLEET ENEMA ADULT 1 EA BTL PR NR (13:15)
--- NOTE | 2017-10-30 13:20 | Progress Note (SOAP) ---
Subjective Date Seen by Provider: Oct 30, 2017 Time Seen by Provider: 13:18 Subjective/Events-last exam complains of constipation and nausea. Otherwise, she is doing well without complaints regarding her knee. Objective Exam Vital Signs Date Time Temp Pulse Resp B/P (MAP) Pulse Ox O2 Delivery O2 Flow Rate FiO2 10/30/17 08:00 177/82 (113) 10/30/17 08:00 97.7 101 20 183/85 (117) 96 Room Air 10/30/17 00:00 98.7 91 18 137/73 (94) 96 Room Air 10/29/17 20:00 98.2 88 20 155/74 (101) 96 Room Air 10/29/17 15:51 98.1 88 20 149/65 (93) 98 Room Air I & O 10/30/17 06:59 Intake Total 2800 ml Output Total 925 ml Balance 1875 ml Capillary Refill : Less Than 3 Seconds General Appearance: No Apparent Distress Extremity: Normal Capillary Refill, Normal Inspection, Normal Range of Motion, No Calf Tenderness, No Pedal Edema Neurologic/Psychiatric: Alert, Oriented x3, No Motor/Sensory Deficits, Normal Mood/Affect Skin: Normal Color, Warm/Dry (dressing CDI to left knee, ambulating well with therapy) Results Lab Laboratory Tests 10/30/17 05:53: White Blood Count 8.7, Red Blood Count 3.98L, Hemoglobin 12.1, Hematocrit 37, Mean Corpuscular Volume 92, Mean Corpuscular Hemoglobin 30, Mean Corpuscular Hemoglobin Concent 33, Red Cell Distribution Width 13.3, Platelet Count 179, Mean Platelet Volume 9.1, Sodium Level 141, Potassium Level 4.4, Chloride Level 109H, Carbon Dioxide Level 25, Anion Gap 7, Blood Urea Nitrogen 12, Creatinine 0.71, Estimat Glomerular Filtration Rate > 60, BUN/Creatinine Ratio 17, Glucose Level 109H, Calcium Level 9.1 Assessment/Plan Assessment/Plan Assess & Plan/Chief Complaint A: s/p left TKA P: Continue current treatment. Dr. Long to manage constipation. Plan to DC to home with [facility] tomorrow or this evening. Clinical Quality Measures DVT/VTE Risk/Contraindication: Risk Factor Score Per Nursin RFS Level Per Nursing on Admit: 4+=Very High TERESA FRANCIS APRN Oct 30, 2017 1:20 pm
--- NOTE | 2017-10-30 15:51 | Physical Therapy Daily Note ---
PT Daily Note-Current Subjective Pt sitting in recliner upon arrival. Pt continues to struggle with constipation , nausea & indigestion. Pt agrees to limited PT. Pain Numeric Pain Scale: 5-Moderate Pain Location Body Site: Abdomen Pain Description: Cramping Mental Status Patient Orientation: Person, Place, Time, Situation Transfers Functional [place] Measure 0=Not Assessed/NA 4=Minimal Assistance 1=Total Assistance 5=Supervision or Setup 2=Maximal Assistance 6=Modified [place] 3=Moderate Assistance 7=Complete IndependenceIRFPAI Quality Coding Scale 6 Independent with activity with or without an assistive device 5 Patient requires set up or clean up by helper. Patient completes activity by themselves 4 Supervision or touching assist (CGA). [place] provide cues , steadying assist 3 The helper provides less than half the effort to complete the activity 2 The helper provides more than half the effort to complete the activity 1 Dependent. The helper does all the effort to complete an activity 7 Patient refused to complete or attempt activity 9 The patient did not perform the activity before the current illness or injury 88 Not attempted due to Medical conditions or safety concerns Scootin Rollin Supine to/from Sit: 5 Sit to/from Stand: 5 Weight Bearing Right Lower Extremity: Right Full Weight Bearing Left Lower Extremity: Left Full Weight Bearing Gait Training Distance (FIM): 1=up to 49 ft Distance: 40' Gait Level of Assist: 5 Gait Persons Needed: 1 Gait Assistive Device: FWW Pt is walking well with normalized gait pattern. Treatments Pt completes transfers from recliner to standing using FWW at SBA. Pt uses restroom then returns to lay Supine in bed at SBA. CELEBRITY MANAGER & pt's daughter (who is a nurse) discuss whether discharging to ARU is appropriate, movement of pt's bowels & pt's support for discharging to home. Pt is resting in bed at end of tx with all needs met. Assessment Current Status: Good Progress Pt continues to gain strength and independence with transfers and gait despite continued struggle with constipation. PT Short Term Goals Short Term Goals Time Frame: Nov 01, 2017 Transfers (B,C,W/C) (FIM): 6 Gait (FIM): 6 Distance (FIM): 3=150 ft Gait Distance Comment: 250' Gait Level of Assist: 6 Gait Assistive Device: FWW Stairs (FIM): 5 # of Steps: 3 Stairs Level of Assist: 5 PT Plan Problem List Problem List: Activity Tolerance Treatment/Plan Treatment Plan: Continue Plan of Care Treatment Plan: Education, Functional Activity Cal, Functional Strength, Gait , Safety, Therapeutic Exercise, Transfers Treatment Duration: Nov 01, 2017 Frequency: 7 times per week Estimated Hrs Per Day: .5 hour per day Patient and/or Family Agrees t: Yes Safety Risks/Education Patient Education: Correct Positioning, Disease Process, Safety Issues Teaching Recipient: Patient, Family Teaching Methods: Discussion Response to Teaching: Verbalize Understanding Time/GCodes Time In: 1445 Time Out: 1515 Total Billed Treatment Time: 30 Total Billed Treatment 1, FA x2 (30m) PRINCESS RAMOS CELEBRITY MANAGER Oct 30, 2017 15:51
[2017-10-30 15:55] VITALS: BP 168/80
[2017-10-30] MEDS ORDERED: ACETAMINOPHEN 325 MG TABLET/CAPLET (TYLENOL) ONE (16:54)
--- NOTE | 2017-10-30 17:01 | Diagnostic Imaging Report ---
INDICATION: Fever and constipation. KUB at 4:46 PM FINDINGS: Bowel gas pattern is normal. There are no pathologic masses or calcifications. IMPRESSION: No acute abnormality seen in the abdomen. Dictated by: Dictated on workstation # [id number]
--- NOTE | 2017-10-30 17:46 | Progress Note (SOAP) ---
Subjective Date Seen by Provider: Oct 30, 2017 Time Seen by Provider: 12:45 Subjective/Events-last exam Fwup Left TKR, constipation, hyperglycemia. Ongoing constipation causing nausea. BP up due to distress of constipation/nausea. Objective Exam Vital Signs Date Time Temp Pulse Resp B/P (MAP) Pulse Ox O2 Delivery O2 Flow Rate FiO2 10/30/17 17:13 101.0 10/30/17 15:55 101.1 105 18 168/80 (109) 95 Room Air 10/30/17 09:00 Room Air 10/30/17 08:00 177/82 (113) 10/30/17 08:00 97.7 101 20 183/85 (117) 96 Room Air 10/30/17 00:00 98.7 91 18 137/73 (94) 96 Room Air 10/29/17 20:00 98.2 88 20 155/74 (101) 96 Room Air I & O 10/30/17 07:00 Intake Total 2800 ml Output Total 925 ml Balance 1875 ml Capillary Refill : Less Than 3 Seconds General Appearance: Mild Distress Respiratory: Lungs Clear Cardiovascular: Regular Rate, Rhythm Gastrointestinal: normal bowel sounds, non tender, soft Extremity: Non Tender, No Calf Tenderness, No Pedal Edema Results Lab Laboratory Tests 10/30/17 05:53: White Blood Count 8.7, Red Blood Count 3.98L, Hemoglobin 12.1, Hematocrit 37, Mean Corpuscular Volume 92, Mean Corpuscular Hemoglobin 30, Mean Corpuscular Hemoglobin Concent 33, Red Cell Distribution Width 13.3, Platelet Count 179, Mean Platelet Volume 9.1, Sodium Level 141, Potassium Level 4.4, Chloride Level 109H, Carbon Dioxide Level 25, Anion Gap 7, Blood Urea Nitrogen 12, Creatinine 0.71, Estimat Glomerular Filtration Rate > 60, BUN/Creatinine Ratio 17, Glucose Level 109H, Calcium Level 9.1 Assessment/Plan Assessment/Plan Assess & Plan/Chief Complaint 1. Left Knee OA--S/P Left TKR--pain control, PT/OT, DVT prophylaxis with lovenox, rehab eval 2. Constipation--try enema, if no results check KUB 3. Hyperglycemia--better on chemistry this morning, awaiting HbA1C results Clinical Quality Measures DVT/VTE Risk/Contraindication: Risk Factor Score Per Nursin RFS Level Per Nursing on Admit: 4+=Very High BELKIS CHAUDHARY DO Oct 30, 2017 17:45
[2017-10-30] MEDS ORDERED: MILK OF MAGNESIA 400 MG/5 ML 30 ML UDC PO PRN (18:00)
[2017-10-30] MEDS ORDERED: ACETAMINOPHEN 500 MG TAB (TYLENOL) PO PRN (18:00)
[2017-10-30 18:21] LABS: CLARITY,URINE CLEAR; COLOR,URINE YELLOW; GLUCOSE, URINE (UA) 1+ (NEGATIVE); KETONES,URINE 3+ (NEGATIVE); LEUKOCYTE ESTERASE ,URINE 2+ (NEGATIVE); NITRITE,URINE NEGATIVE (NEGATIVE); PH,URINE 5 (5-9); PROTEIN,URINE 2+ (NEGATIVE); UROBILINOGEN,URINE 1 MG/DL (NORMAL)
[2017-10-30 18:30] LABS: SQUAMOUS EPITHELIAL CELL,UR 0-5 /HPF
[2017-10-30 18:31] LABS: BILIRUBIN,URINE 1+ (NEGATIVE)
[2017-10-31] VITALS: BP 141/73
[2017-10-31] MEDS ORDERED: NS (IVPB) 50 ML ONE (00:46)
[2017-10-31] MEDS ORDERED: cefTRIAXone 1 GM (ROCEPHIN) VIAL ONE (00:46)
[2017-10-31] MEDS: NS IV 1000 ML 1,000 ML IV SCH ×2 (00:53→17:10)
[2017-10-31] MEDS: SCOPOLAMINE 1.5 MG (TRANSDERM-SCOP) PATCH TOP SCH (00:53)
[2017-10-31] MEDS: cefTRIAXone INJECTION 1,000 MG in NS (IVPB) 50 ML IV SCH ×2 (00:54→01:19)
[2017-10-31] MEDS: ONDANSETRON 4 MG/2 ML (SDV) Z0FRAN IVP PRN ×2 (04:55→21:06)
[2017-10-31 06:26] LABS: HEMOGLOBIN 13.1 G/DL (11.5-16.0)
--- NOTE | 2017-10-31 07:00 | Progress Note (SOAP) ---
Subjective Date Seen by Provider: Oct 31, 2017 Time Seen by Provider: 06:57 Subjective/Events-last exam Currently has complaints of nausea without vomiting. Lack of appetite. She still has not had a good bowel movement and is concerned. Objective Exam Vital Signs Date Time Temp Pulse Resp B/P (MAP) Pulse Ox O2 Delivery O2 Flow Rate FiO2 10/31/17 03:58 99.8 10/31/17 00:00 100.0 106 20 141/73 (95) 93 Room Air 10/30/17 17:13 101.0 10/30/17 15:55 101.1 105 18 168/80 (109) 95 Room Air 10/30/17 09:00 Room Air 10/30/17 08:00 177/82 (113) 10/30/17 08:00 97.7 101 20 183/85 (117) 96 Room Air I & O 10/31/17 06:59 Intake Total 1990 ml Output Total 600 ml Balance 1390 ml Capillary Refill : Less Than 3 Seconds General Appearance: No Apparent Distress Extremity: Normal Capillary Refill, No Pedal Edema Neurologic/Psychiatric: Alert, Oriented x3, No Motor/Sensory Deficits, Normal Mood/Affect (dressing to left knee CDI) Skin: Normal Color, Warm/Dry Results Lab Laboratory Tests 10/30/17 18:10: Urine Color YELLOW, Urine Clarity CLEAR, Urine pH 5, Urine Specific [place] 1.030H, Urine Protein 2+H, Urine Glucose (UA) 1+H, Urine Ketones 3+H, Urine Nitrite NEGATIVE, Urine Bilirubin 1+H, Urine Urobilinogen 1, Urine Leukocyte Esterase 2+H, Urine RBC (Auto) NEGATIVE, Urine RBC NONE, Urine WBC 5-10H, Urine Squamous Epithelial Cells 0-5, Urine Crystals NONE, Urine Bacteria NONE, Urine Casts NONE, Urine Mucus LARGEH, Urine Culture Indicated YES 10/31/17 05:45: Hemoglobin 13.1, Hematocrit 39 Assessment/Plan Assessment/Plan Assess & Plan/Chief Complaint A: s/p left TKA POD #3, narcotic induced constipation, nausea P: Continue current treatment. Dr. Long to manage constipation. If she can improve medically she can be DC'd to home today with [facility]. Clinical Quality Measures DVT/VTE Risk/Contraindication: Risk Factor Score Per Nursin RFS Level Per Nursing on Admit: 4+=Very High TERESA FRANCIS APRN Oct 31, 2017 7:00 am
[2017-10-31] MEDS ORDERED: NS IV 1000 ML 1,000 ML IV SCH (07:45)
[2017-10-31 08:00] VITALS: BP 151/83
[2017-10-31] MEDS: SENNA W/DOCUSATE (SENOKOT S) TABLET PO SCH ×2 (08:08→21:06)
[2017-10-31] MEDS: ENOXAPARIN 40 MG/0.4 ML (LOVENOX) SYR SC SCH (08:09)
[2017-10-31] MEDS: ASPIRIN E.C. 81 MG (ECOTRIN) TAB PO SCH (08:09)
--- NOTE | 2017-10-31 09:03 | Physical Therapy Daily Note ---
PT Daily Note-Current Subjective Patient agrees to PT. Patient c/o nausea and fatigue. Pain Numeric Pain Scale: 2 Location: Left Location Body Site: Knee Pain Description: Acute Mental Status Patient Orientation: Normal For Age Attachments: IV Transfers Functional [place] Measure 0=Not Assessed/NA 4=Minimal Assistance 1=Total Assistance 5=Supervision or Setup 2=Maximal Assistance 6=Modified [place] 3=Moderate Assistance 7=Complete IndependenceIRFPAI Quality Coding Scale 6 Independent with activity with or without an assistive device 5 Patient requires set up or clean up by helper. Patient completes activity by themselves 4 Supervision or touching assist (CGA). [place] provide cues , steadying assist 3 The helper provides less than half the effort to complete the activity 2 The helper provides more than half the effort to complete the activity 1 Dependent. The helper does all the effort to complete an activity 7 Patient refused to complete or attempt activity 9 The patient did not perform the activity before the current illness or injury 88 Not attempted due to Medical conditions or safety concerns Transfers (B, C, W/C) (FIM): 6 Scootin Sit to/from Stand: 6 Weight Bearing Right Lower Extremity: Right Full Weight Bearing Left Lower Extremity: Left Full Weight Bearing Gait Training Gait (FIM): 6 Distance (FIM): 3=150 ft Distance: 400' Gait Level of Assist: 6 Gait Assistive Device: FWW reciprocal pattern with FWW Assessment Patient tolerated treatment well and is up in recliner with c/o nausea. Patient continues to have fever. PT Short Term Goals Short Term Goals Time Frame: Nov 01, 2017 Transfers (B,C,W/C) (FIM): 6 Gait (FIM): 6 Distance (FIM): 3=150 ft Gait Distance Comment: 250' Gait Level of Assist: 6 Gait Assistive Device: FWW Stairs (FIM): 5 # of Steps: 3 Stairs Level of Assist: 5 PT Plan Treatment/Plan Treatment Plan: Continue Plan of Care Treatment Plan: Education, Functional Activity Cal, Functional Strength, Gait , Safety, Therapeutic Exercise, Transfers Treatment Duration: Nov 01, 2017 Frequency: 7 times per week Estimated Hrs Per Day: .5 hour per day Patient and/or Family Agrees t: Yes Time/GCodes Time In: 820 Time Out: 835 Total Billed Treatment Time: 15 Total Billed Treatment 1 visit GT 15 min THAI CERVANTES PT Oct 31, 2017 09:03
--- NOTE | 2017-10-31 10:31 | Occupational Ther Daily Note ---
OT Current Status-Daily Note Subjective Pt seen in room, up in bed, reported she was still nauseated. Hopes to go home today Appearance Alert, cooperative Mental Status/Objective Functional [place] Measure 0=Not Assessed/NA 4=Minimal Assistance 1=Total Assistance 5=Supervision or Setup 2=Maximal Assistance 6=Modified [place] 3=Moderate Assistance 7=Complete [place] ADL-Treatment Reviewed modified ADL techniques with pt verbally. She may borrow some of the hip kit items but her family is taking care of it. She had no questions or concerns re: ADLs. OT encouraged her to ask home health PT if she has problems with any ADLs at home. Pt did not want to practice with equipment - was confident in her abilities. OT goals met to her satisfaction. DC OT. pt left up in bed, all needs met. Education OT Patient Education: Modified ADL techniques, Use of adapted equipment Teaching Recipient: Patient Teaching Methods: Discussion Response to Teaching: Verbalize Understanding OT Short Term Goals Short Term Goals Transfers (B,C,W/C) (FIM): 6 1=Demonstrate adherence to instructed precautions during ADL tasks. 2=Patient will verbalize/demonstrate understanding of assistive devices/ modifications for ADL. 3=Patient will improve strength/tolerance for activity to enable patient to perform ADL's. OT Entertainment Production Professional Goals Entertainment Production Professional Goals Time Frame: Nov 01, 2017 Grooming(FIM): 6 Bathing(FIM): 5 Upper Body Dressing(FIM): 5 Lower Body Dressing(FIM): 5 Toileting(FIM): 6 Toilet/Commode Transfer(FIM): 6 Additional Goals: 2-Verbalize Understanding, 3-ImproveStrength/Cal 1=Demonstrate adherence to instructed precautions during ADL tasks. 2=Patient will verbalize/demonstrate understanding of assistive devices/ modifications for ADL. 3=Patient will improve strength/tolerance for activity to enable patient to perform ADL's. OT Education/Plan Problem List/Assessment Pt would benefit from skilled OT to increase her independence in basic self care to allow her to safely return to her home to live independently after L total knee replacement Discharge Recommendations Plan/Recommendations: Discharge/Goals Met Treatment Plan/Plan of Care Patient would benefit from OT for education, treatment and training to promote independence in ADL's, mobility, safety and/or upper extremity function for ADL' s. Plan of Care: ADL Retraining Treatment Duration: Nov 01, 2017 Frequency: 4 times per week Estimated Hrs Per Day: .5 hour per day (.25 to .5) Agreement: Yes Rehab Potential: Good Time/GCodes Start Time: 10:20 Stop Time: 10:25 Total Time Billed (hr/min): 5 Billed Treatment Time visit, 5 minutes ADL SRINIVASA MORRISON OT Oct 31, 2017 10:31
--- OUTSIDE RECORDS SUMMARY | 2017-10-31 11:13 | XMS REPORT | Clinical Summary ---
Author Author [facility] Organization [facility] Address Unknown Phone Unavailable Care Team Providers Care Increment Manager Name Role Phone Melissa Long MD PCP Source Comments Some departments are not documenting in the electronic medical record. If you do not see the information that you expected, contact Release of Information in the Health Information Management department at [phone] for further assistance in locating additional records.[facility] Allergies Not on File Current Medications Not on file Active Problems Not on file Social History Tobacco Use Types Packs/Day Years Used Date Never Assessed Sex Assigned at Date Recorded Not on file Last Filed Vital Signs Not on file Plan of Treatment Health Maintenance Due Date Last Done Comments PHYSICAL (COMPREHENSIVE) 1947 EXAM PERTUSSIS VACCINE 1949 TETANUS VACCINE 1955 SHINGLES VACCINE 1998 OSTEOPOROSIS SCREENING 2003 PREVNAR/PNEUMOVAX (#1) 2003 INFLUENZA VACCINE 04/16/2017 Results Not on filefrom Last 3 Months
--- OUTSIDE RECORDS SUMMARY | 2017-10-31 11:13 | XMS REPORT | Continuity of Care Document ---
Author Author [facility] Organization [facility] Address Unknown Phone Unavailable Allergies Active Description Code Type Severity Reaction Onset Reported/Identified Relationship to Patient Clinical Status Yes No Known Drug Allergies [id number] Drug Allergy Unknown N/A 01/11/2012 Yes clindamycin [id number] Drug Allergy Unknown joint pain 10/14/2017 Yes levofloxacin [id number] Drug Allergy Unknown joint pain 10/14/2017 Medications There is no data. Problems Date Dx Coded Attending Type Code Diagnosis Diagnosed By 01/11/2012 Ot 211.3 BENIGN NEOPLASM LG BOWEL 01/11/2012 Ot 562.10 DIVERTICULOSIS COLON (W/O MENT OF HEMORR 01/11/2012 Ot V16.0 FAMILY HX-GI MALIGNANCY 01/11/2012 Ot V76.51 SCREEN MAL NEOP-COLON 03/11/2014 TERESA FRANCIS TELEVISION PRODUCTION CLERK Ot V57.1 PHYSICAL THERAPY NEC 03/11/2014 TERESA FRANCIS TELEVISION PRODUCTION CLERK Ot V58.78 AFTERCARE POST SURGERY MUSCULOSKELETAL S 03/26/2014 TERESA FRANCIS TELEVISION PRODUCTION CLERK Ot V57.1 PHYSICAL THERAPY NEC 03/26/2014 TERESA FRANCIS TELEVISION PRODUCTION CLERK Ot V58.78 AFTERCARE POST SURGERY MUSCULOSKELETAL S 09/20/2014 Ot 518.89 09/20/2014 Ot 786.50 09/20/2014 Ot V81.5 09/20/2014 Ot 518.89 09/20/2014 Ot 518.89 09/20/2014 Ot V72.84 09/20/2014 Ot 793.11 09/20/2014 ISAIAS MOREL MD Ot 793.11 09/20/2014 ISAIAS OMREL MD Ot 719.41 09/20/2014 ISAIAS MOREL MD Ot E000.8 09/20/2014 ISAIAS MOREL MD Ot E849.0 09/20/2014 ISAIAS MOREL MD Ot E888.9 09/20/2014 ISAIAS MOREL MD Ot 719.41 09/20/2014 ISAIAS MOREL MD Ot 726.10 10/16/2014 ISAIAS MOREL MD Ot 793.11 10/26/2014 ISAIAS MOREL MD Ot 793.11 12/23/2014 Ot 719.41 12/23/2014 Ot 959.2 12/23/2014 Ot E000.8 12/23/2014 Ot E849.0 12/23/2014 Ot E888.9 12/31/2014 Ot 719.41 12/31/2014 Ot 959.2 12/31/2014 Ot E000.8 12/31/2014 Ot E849.0 12/31/2014 Ot E888.9 01/28/2015 NAIDA RIVERA MD Ot 211.3 BENIGN NEOPLASM LG BOWEL 01/28/2015 NAIDA RIVERA MD Ot V16.0 FAMILY HX-GI MALIGNANCY 01/28/2015 NAIDA RIVERA MD Ot V76.51 SCREEN MAL NEOP-COLON 07/02/2016 Ot 518.89 OTHER DISEASES OF LUNG, NEC 07/02/2016 Ot 518.89 OTHER DISEASES OF LUNG, NEC 07/02/2016 Ot V72.84 EXAM PRE- OPERATIVE NOS 07/02/2016 Ot 793.11 SOLITARY PULMONARY NODULE 07/02/2016 ISAIAS MOREL MD Ot 793.11 SOLITARY PULMONARY NODULE 07/02/2016 ISAIAS MOERL MD Ot 719.41 JOINT PAIN-SHLDER 07/02/2016 ISAIAS MOREL MD Ot E000.8 OTHER EXTERNAL CAUSE STATUS 07/02/2016 ISAIAS MOREL MD Ot E849.0 ACCIDENT IN HOME 07/02/2016 ISAIAS MOREL MD Ot E888.9 FALL NOS 07/02/2016 ISAIAS MOREL MD Ot 719.41 JOINT PAIN-SHLDER 07/02/2016 ISAIAS MOREL MD Ot 726.10 BURSAE TENDONS DIS SHLDER NOS 07/02/2016 ISAIAS MOREL MD Ot 793.11 SOLITARY PULMONARY NODULE 07/02/2016 Ot 719.41 JOINT PAIN- SHLDER 07/02/2016 Ot 959.2 SHLDR/UPPER ARM INJ NOS 07/02/2016 Ot E000.8 OTHER EXTERNAL CAUSE STATUS 07/02/2016 Ot E849.0 ACCIDENT IN HOME 07/02/2016 Ot E888.9 FALL NOS 07/02/2016 NAIDA RIVERA MD Ot V72.84 EXAM PRE-OPERATIVE NOS 07/03/2016 ORENDER DO, BELKIS S Ot R91.8 OTHER NONSPECIFIC ABNORMAL FINDING OF [place] 07/24/2016 ORENDER DO, BELKIS S Ot R91.8 OTHER NONSPECIFIC ABNORMAL FINDING OF [place] 08/03/2016 ORENDER DO, BELKIS S Ot R91.8 OTHER NONSPECIFIC ABNORMAL FINDING OF [place] 10/14/2017 KANDICE DO, AYO F Ot M79.662 PAIN IN LEFT LOWER LEG 10/14/2017 Ot 793.11 SOLITARY PULMONARY NODULE 10/14/2017 ISAIAS MOREL MD Ot 793.11 SOLITARY PULMONARY NODULE 10/14/2017 ISAIAS MOREL MD Ot 719.41 JOINT PAIN-SHLDER 10/14/2017 ISAIAS MOREL MD Ot E000.8 OTHER EXTERNAL CAUSE STATUS 10/14/2017 ISAIAS MOREL MD Ot E849.0 ACCIDENT IN HOME 10/14/2017 ISAIAS MOREL MD Ot E888.9 FALL NOS 10/14/2017 ISAIAS MOREL MD Ot 719.41 JOINT PAIN-SHLDER 10/14/2017 ISAIAS MOREL MD Ot 726.10 BURSAE TENDONS DIS SHLDER NOS 10/14/2017 ISAIAS MOREL MD Ot 793.11 SOLITARY PULMONARY NODULE 10/14/2017 Ot 719.41 JOINT PAIN- SHLDER 10/14/2017 Ot 959.2 SHLDR/UPPER ARM INJ NOS 10/14/2017 Ot E000.8 OTHER EXTERNAL CAUSE STATUS 10/14/2017 Ot E849.0 ACCIDENT IN HOME 10/14/2017 Ot E888.9 FALL NOS 10/14/2017 NAIDA RIVERA MD Ot V72.84 EXAM PRE-OPERATIVE NOS 10/14/2017 ORENDER DO, BELKIS S Ot R91.8 OTHER NONSPECIFIC ABNORMAL FINDING OF [place] 10/14/2017 KANDICE DO, AYO F Ot M79.662 PAIN IN LEFT LOWER LEG 10/15/2017 KANDICE DO, AYO F Ot M17.12 UNILATERAL PRIMARY OSTEOARTHRITIS, LEFT 10/15/2017 KANDICE GALDAMEZ, AYO Allen Ot R53.83 OTHER FATIGUE 10/15/2017 KANDICE GALDAMEZ, AYO Allen Ot Z01.810 ENCOUNTER FOR PREPROCEDURAL CARDIOVASCUL 10/15/2017 AYO WOODSON DO Ot Z01.811 ENCOUNTER FOR PREPROCEDURAL RESPIRATORY 10/15/2017 KANDICE GALDAMEZ AYO Allen Ot Z01.812 ENCOUNTER FOR PREPROCEDURAL LABORATORY E 10/15/2017 KANDICE GALDAMEZ AYO Allen Ot Z11.2 ENCOUNTER FOR SCREENING FOR OTHER BACTER Procedures There is no data. Results Test Result Range Complete blood count (CBC) with automated white blood cell (WBC) differential - 10/14/17 12:23 Blood leukocytes automated count (number/volume) 7.6 10*3/uL 4.3-11.0 Blood erythrocytes automated count (number/volume) 4.86 10*6/uL 4.35-5.85 Venous blood hemoglobin measurement (mass/volume) 14.7 g/dL 11.5-16.0 Blood hematocrit (volume fraction) 44 % 35-52 Automated erythrocyte mean corpuscular volume 91 [foz_us] 80-99 Automated erythrocyte mean corpuscular hemoglobin (mass per erythrocyte) 30 pg 25-34 Automated erythrocyte mean corpuscular hemoglobin concentration measurement ( mass/volume) 33 g/dL 32-36 Automated erythrocyte distribution width ratio 13.6 % 10.0-14.5 Automated blood platelet count (count/volume) 204 10*3/uL 130-400 Automated blood platelet mean volume measurement 9.3 [foz_us] 7.4-10.4 Automated blood neutrophils/100 leukocytes 68 % 42-75 Automated blood lymphocytes/100 leukocytes 20 % 12-44 Blood monocytes/100 leukocytes 8 % 0-12 Automated blood eosinophils/100 leukocytes 4 % 0-10 Automated blood basophils/100 leukocytes 1 % 0-10 Blood neutrophils automated count (number/volume) 5.2 10*3 1.8-7.8 Blood lymphocytes automated count (number/volume) 1.5 10*3 1.0-4.0 Blood monocytes automated count (number/volume) 0.6 10*3 0.0-1.0 Automated eosinophil count 0.3 10*3/uL 0.0-0.3 Automated blood basophil count (count/volume) 0.0 10*3/uL 0.0-0.1 PT panel in platelet poor plasma by coagulation assay - 10/14/17 12:23 Prothrombin time (PT) in platelet poor plasma by coagulation assay 13.0 s 12.2-14.7 INR in platelet poor plasma or blood by coagulation assay 1.0 0.8-1.4 Whole blood basic metabolic panel - 10/14/17 12:23 Serum or plasma sodium measurement (moles/volume) 142 mmol/L 135-145 Serum or plasma potassium measurement (moles/volume) 4.4 mmol/L 3.6-5.0 Serum or plasma chloride measurement (moles/volume) 107 mmol/L 98-107 Carbon dioxide 25 mmol/L 21-32 Serum or plasma anion gap determination (moles/volume) 10 mmol/L 5-14 Serum or plasma urea nitrogen measurement (mass/volume) 17 mg/dL 7-18 Serum or plasma creatinine measurement (mass/volume) 0.79 mg/dL 0.60-1.30 Serum or plasma urea nitrogen/creatinine mass ratio 22 NRG Serum or plasma creatinine measurement with calculation of estimated glomerular filtration rate > NRG Serum or plasma glucose measurement (mass/volume) 86 mg/dL 70-105 Serum or plasma calcium measurement (mass/volume) 9.7 mg/dL 8.5-10.1 Blood type T Indirect antibody screen panel - 10/14/17 12:23 ABO+Rh group ABP NRG Transfusion band number TNP NRG Blood group antibody screen NEGATIVE NRG Methicillin resistant Staphylococcus aureus (MRSA) screening culture - 12:23 Methicillin resistant Staphylococcus aureus (MRSA) screening culture NEG NRG Complete urinalysis with reflex to culture - 10/14/17 12:40 Urine color determination YELLOW NRG Urine clarity determination CLEAR NRG Urine pH measurement by test strip 6.5 5-9 Specific gravity of urine by test strip 1.015 1.016- 1.022 Urine protein assay by test strip, semi-quantitative NEGATIVE NEGATIVE Urine glucose detection by automated test strip NEGATIVE NEGATIVE Erythrocytes detection in urine sediment by light microscopy NEGATIVE NEGATIVE Urine ketones detection by automated test strip NEGATIVE NEGATIVE Urine nitrite detection by test strip NEGATIVE NEGATIVE Urine total bilirubin detection by test strip NEGATIVE NEGATIVE Urine urobilinogen measurement by automated test strip (mass/volume) NORMAL NORMAL Urine leukocyte esterase detection by dipstick 3+ NEGATIVE Automated urine sediment erythrocyte count by microscopy (number/high power field) NONE NRG Automated urine sediment leukocyte count by microscopy (number/high power field ) [HPF] NRG Bacteria detection in urine sediment by light microscopy TRACE NRG Squamous epithelial cells detection in urine sediment by light microscopy 5-10 NRG Crystals detection in urine sediment by light microscopy NONE NRG Casts detection in urine sediment by light microscopy NONE NRG Mucus detection in urine sediment by light microscopy SMALL NRG Complete urinalysis with reflex to culture NO NRG Encounters ACCT No. Visit Date/Time Discharge Status Pt. Type Provider Facility Loc./Unit Complaint [id number] 10/28/2017 08:00:00 10/28/2017 23:59:59 CLS Preadmit AYO WOODSON DO PRIMARY OSTEOARTHRITIS [id number] 10/14/2017 11:56:00 10/14/2017 12:45:00 DIS Outpatient AYO WOODSON DO [facility] PREOP PRIMARY OSTEOARTHRITIS [id number] 07/02/2016 10:50:00 07/02/2016 23:59:59 CLS Outpatient BELKIS CHAUDHARY DO [facility] RAD F/U LT UPPER LOBE PULM NODULE [id number] 01/28/2015 06:40:00 01/28/2015 09:20:00 DIS Outpatient NAIDA RIVERA MD [facility] HISTORY OF POLYPS; FAMILY HISTORY [id number] 01/26/2015 06:12:00 01/26/2015 23:59:59 CLS Outpatient NAIDA RIVERA MD [facility] PREOP HISTORY OF POLYPS; FAMILY HISTORY [id number] 09/22/2014 14:53:00 09/22/2014 23:59:59 CLS Outpatient ISAIAS MOREL MD [facility] RAD PULMONARY NODULE [id number] 03/23/2014 15:15:00 03/26/2014 15:45:00 DIS Outpatient TERESA FRANCIS APRN [facility] REHAB S/P RT SHOULDER ROTATOR CUFF TEAR [id number] 02/05/2014 14:20:00 03/11/2014 00:01:00 DIS Outpatient TERESA FRANCIS APRN [facility] REHAB S/P RT SHOULDER ROTATOR CUFF TEAR [id number] 10/05/2013 13:13:00 10/05/2013 23:59:59 CLS Outpatient ISAIAS MOREL MD [facility] RAD RT SHOULDER PAIN [id number] 09/24/2013 14:29:00 09/24/2013 23:59:59 CLS Outpatient ISAIAS MOREL MD [facility] RAD R SHOULDER PAIN/FALL [id number] 07/13/2013 14:16:00 07/13/2013 23:59:59 CLS Outpatient ISAIAS MOREL MD [facility] RAD F/U PULMONARY NODULE [id number] 12/01/2014 13:18:00 Document Registration [id number] 06/20/2012 13:49:00 Document Registration [id number] 01/11/2012 07:15:00 Document Registration [id number] 01/04/2012 08:02:00 Document Registration [id number] 12/24/2011 16:28:00 Document Registration [id number] 04/09/2011 13:09:00 Document Registration [id number] 12/19/2010 13:35:00 Document Registration
[2017-10-31] MEDS ORDERED: MILK OF MAGNESIA 400 MG/5 ML 30 ML UDC PO NR (12:45)
[2017-10-31] MEDS: ACETAMINOPHEN 325 MG TABLET/CAPLET (TYLENOL) PO PRN ×2 (13:18→17:10)
--- NOTE | 2017-10-31 13:25 | Physical Therapy Daily Note ---
PT Daily Note-Current Subjective Patient reports she will dismiss to home tomorrow. Pain Numeric Pain Scale: 5-Moderate Pain Location: Right Location Body Site: Knee Pain Description: Acute Mental Status Patient Orientation: Normal For Age Attachments: IV Transfers Functional [place] Measure 0=Not Assessed/NA 4=Minimal Assistance 1=Total Assistance 5=Supervision or Setup 2=Maximal Assistance 6=Modified [place] 3=Moderate Assistance 7=Complete IndependenceIRFPAI Quality Coding Scale 6 Independent with activity with or without an assistive device 5 Patient requires set up or clean up by helper. Patient completes activity by themselves 4 Supervision or touching assist (CGA). [place] provide cues , steadying assist 3 The helper provides less than half the effort to complete the activity 2 The helper provides more than half the effort to complete the activity 1 Dependent. The helper does all the effort to complete an activity 7 Patient refused to complete or attempt activity 9 The patient did not perform the activity before the current illness or injury 88 Not attempted due to Medical conditions or safety concerns Transfers (B, C, W/C) (FIM): 6 Scootin Rollin Supine to/from Sit: 6 Sit to/from Stand: 6 Weight Bearing Right Lower Extremity: Right Full Weight Bearing Left Lower Extremity: Left Full Weight Bearing Gait Training Gait (FIM): 6 Distance (FIM): 3=150 ft Distance: 400' Gait Level of Assist: 6 Gait Assistive Device: FWW safe and functional Exercises Supine Ex: Ankle pumps, Quad Set, Heel Slides, Straight leg raise Supine Reps: 15 Assessment Patient tolerated treatment well and is in bed with needs met. Patient will dismiss to home tomorrow. PT Short Term Goals Short Term Goals Time Frame: Nov 01, 2017 Transfers (B,C,W/C) (FIM): 6 Gait (FIM): 6 Distance (FIM): 3=150 ft Gait Distance Comment: 250' Gait Level of Assist: 6 Gait Assistive Device: FWW Stairs (FIM): 5 # of Steps: 3 Stairs Level of Assist: 5 PT Plan Treatment/Plan Treatment Plan: Continue Plan of Care Treatment Plan: Education, Functional Activity Cal, Functional Strength, Gait , Safety, Therapeutic Exercise, Transfers Treatment Duration: Nov 01, 2017 Frequency: 7 times per week Estimated Hrs Per Day: .5 hour per day Patient and/or Family Agrees t: Yes Time/GCodes Time In: 1255 Time Out: 1318 Total Billed Treatment Time: 23 Total Billed Treatment 1 visit GT 15 min EX 8 min THAI CERVANTES PT Oct 31, 2017 13:25
[2017-10-31 15:52] VITALS: BP 171/79
[2017-10-31] MEDS ORDERED: LACTULOSE SYRUP 10GM/15ML (ENULOSE) 30ML UDC PO NR (18:00)
--- NOTE | 2017-10-31 18:49 | Progress Note (SOAP) ---
Subjective Date Seen by Provider: Oct 31, 2017 Time Seen by Provider: 12:40 Subjective/Events-last exam Fwup Left TKR, constipation, hyperglycemia. Had N/V overnight and found to have UTI. Has only had small BM this morning. Objective Exam Vital Signs Date Time Temp Pulse Resp B/P (MAP) Pulse Ox O2 Delivery O2 Flow Rate FiO2 10/31/17 18:14 100.1 10/31/17 15:52 99.9 97 16 171/79 (109) 96 Room Air 10/31/17 09:37 Room Air 10/31/17 08:00 99.0 101 22 151/83 (105) 95 Room Air 10/31/17 03:58 99.8 10/31/17 00:00 100.0 106 20 141/73 (95) 93 Room Air I & O 10/31/17 07:00 Intake Total 1990 ml Output Total 600 ml Balance 1390 ml Capillary Refill : Less Than 3 Seconds General Appearance: Mild Distress Respiratory: Lungs Clear Cardiovascular: Regular Rate, Rhythm Gastrointestinal: non tender, soft, abnormal bowel sounds (hypoactive), distended Extremity: Non Tender, No Calf Tenderness, No Pedal Edema Neurologic/Psychiatric: Alert Skin: Warm/Dry, Other (left knee dressing dry and in place) Results Lab Laboratory Tests 10/31/17 05:45: Hemoglobin 13.1, Hematocrit 39 Microbiology 10/30/17 Urine Culture - Preliminary, Resulted NO GROWTH Assessment/Plan Assessment/Plan Assess & Plan/Chief Complaint 1. Left Knee OA--S/P Left TKR--pain control, PT/OT, DVT prophylaxis with lovenox, rehab eval 2. Constipation--repeat MOM, add miralax, increase activity 3. Hyperglycemia--better 4. UTI--on rocephin 5. Nausea--improved with scopolamine patch but still poor appetite so will continue IVFs Clinical Quality Measures DVT/VTE Risk/Contraindication: Risk Factor Score Per Nursin RFS Level Per Nursing on Admit: 4+=Very High BELKIS CHAUDHARY DO Oct 31, 2017 18:49
[2017-10-31] MEDS ORDERED: MAGNESIUM CITRATE 300 ML BTL PO ONE (21:00)
[2017-10-31] MEDS: POLYETHYLENE GLYCOL 17 GM (MIRALAX) PACK PO SCH (21:06)
[2017-11-01 00:52] VITALS: BP 166/78
[2017-11-01] MEDS: cefTRIAXone INJECTION 1,000 MG in NS (IVPB) 50 ML IV SCH (01:42)
[2017-11-01] MEDS: NS IV 1000 ML 1,000 ML IV SCH ×3 (03:58→21:56)
[2017-11-01 06:53] LABS: BASOPHILS % (AUTO) 0 % (0-10); EOSINOPHILS # (AUTO) 0.1 10^3/uL (0.0-0.3); EOSINOPHILS % (AUTO) 0 % (0-10); HEMATOCRIT 34 % (35-52); HEMOGLOBIN 11.3 G/DL (11.5-16.0); LYMPHOCYTES # (AUTO) 1.1 X 10^3 (1.0-4.0); LYMPHOCYTES % (AUTO) 7 % (12-44); MEAN CORPUSCULAR HEMOGLOBIN 30 PG (25-34); MEAN CORPUSCULAR HGB CONC 33 G/DL (32-36); MEAN CORPUSCULAR VOLUME 92 FL (80-99); MEAN PLATELET VOLUME 9.5 FL (7.4-10.4); MONOCYTES # (AUTO) 1.2 X 10^3 (0.0-1.0); MONOCYTES % (AUTO) 8 % (0-12); NEUTROPHILS # (AUTO) 13.1 X 10^3 (1.8-7.8); NEUTROPHILS % (AUTO) 85 % (42-75); PLATELET COUNT 214 10^3/uL (130-400); RED BLOOD COUNT 3.73 10^6/uL (4.35-5.85); RED CELL DISTRIBUTION WIDTH 13.7 % (10.0-14.5); WHITE BLOOD COUNT 15.5 10^3/uL (4.3-11.0)
[2017-11-01 07:12] LABS: ALANINE AMINOTRANSFERASE 16 U/L (0-55); ALKALINE PHOSPHATASE 64 U/L (40-136); BILIRUBIN,TOTAL 0.6 MG/DL (0.1-1.0); BUN/CREATININE RATIO 17; CALCIUM 8.5 MG/DL (8.5-10.1); CARBON DIOXIDE 26 MMOL/L (21-32); CHLORIDE 105 MMOL/L (98-107); CREATININE SERUM 0.71 MG/DL (0.60-1.30); GFR ESTIMATED > 60; GLUCOSE 138 MG/DL (70-105); POTASSIUM 4.1 MMOL/L (3.6-5.0); SODIUM 137 MMOL/L (135-145); TOTAL PROTEIN 5.7 GM/DL (6.4-8.2)
[2017-11-01 07:44] LABS: LYMPHOCYTES % (MANUAL) 8 %; MONOCYTES % (MANUAL) 4 %; NEUTROPHILS % (MANUAL) 88 %; RBC MORPH NORMAL
[2017-11-01 07:59] VITALS: BP 173/93
[2017-11-01] MEDS ORDERED: NS 100 ML (IVPB) BAG IV ONE (09:00)
[2017-11-01] MEDS ORDERED: IOHEXOL 350 MG/ML 100 ML (OMNIPAQUE 350) VIAL IV ONE (09:00)
--- NOTE | 2017-11-01 09:43 | Physical Therapy Daily Note ---
PT Daily Note-Current Subjective Pt sitting in recliner upon arrival. Pt reports continued nausea and vomiting. Pt is to be leaving for CT Scan shortly. Transfers Functional [place] Measure 0=Not Assessed/NA 4=Minimal Assistance 1=Total Assistance 5=Supervision or Setup 2=Maximal Assistance 6=Modified [place] 3=Moderate Assistance 7=Complete IndependenceIRFPAI Quality Coding Scale 6 Independent with activity with or without an assistive device 5 Patient requires set up or clean up by helper. Patient completes activity by themselves 4 Supervision or touching assist (CGA). [place] provide cues , steadying assist 3 The helper provides less than half the effort to complete the activity 2 The helper provides more than half the effort to complete the activity 1 Dependent. The helper does all the effort to complete an activity 7 Patient refused to complete or attempt activity 9 The patient did not perform the activity before the current illness or injury 88 Not attempted due to Medical conditions or safety concerns Weight Bearing Right Lower Extremity: Right Full Weight Bearing Left Lower Extremity: Left Full Weight Bearing Treatments WATER SOFTENER SERVICE SUPERVISOR discusses with pt & daughter about how pt has been feeling as well as how to use CPM for home. Xray arrives to take pt for CT scan. Pt transfers from recliner to standing at [facility]. Pt walks to [facility] to sit but tries to sit too early and needs VC for hand & foot placement. Pt has all needs met upon leaving room for scan. Assessment Current Status: Fair Progress Pt continues to report abdominal discomfort, bloating, nausea & vomiting. Pt is limited for tx due to these issues. PT Short Term Goals Short Term Goals Time Frame: Nov 01, 2017 Transfers (B,C,W/C) (FIM): 6 Gait (FIM): 6 Distance (FIM): 3=150 ft Gait Distance Comment: 250' Gait Level of Assist: 6 Gait Assistive Device: FWW Stairs (FIM): 5 # of Steps: 3 Stairs Level of Assist: 5 PT Plan Problem List Problem List: Activity Tolerance, Functional Strength, Safety Treatment/Plan Treatment Plan: Continue Plan of Care Treatment Plan: Education, Functional Activity Cal, Functional Strength, Gait , Safety, Therapeutic Exercise, Transfers Treatment Duration: Nov 01, 2017 Frequency: 7 times per week Estimated Hrs Per Day: .5 hour per day Patient and/or Family Agrees t: Yes Safety Risks/Education Patient Education: Transfer Techniques, Correct Positioning, Safety Issues Teaching Recipient: Patient, Family Teaching Methods: Discussion Response to Teaching: Verbalize Understanding Time/GCodes Time In: 905 Time Out: 920 Total Billed Treatment Time: 15 Total Billed Treatment 1, JOANN (15m) PRINCESS RAMOS PTA Nov 01, 2017 09:43
--- NOTE | 2017-11-01 09:59 | Diagnostic Imaging Report ---
PROCEDURE: CT abdomen and pelvis with contrast. TECHNIQUE: Multiple contiguous axial images were obtained through the abdomen and pelvis after administration of intravenous contrast. INDICATION: Status post recent knee surgery, now complaining of mid abdominal pain and constipation. No prior studies are available for comparison. There appears to be minimal dependent atelectasis in the right lower lobe. Generalized low density throughout the liver is noted consistent with hepatic steatosis. No discrete liver mass is identified. The gallbladder is unremarkable. Pancreas and spleen are unremarkable. No adrenal mass is identified. Kidneys are unremarkable. Aorta is nonaneurysmal. There is diffuse fluid and stool distention of the colon. No definite focal mass or transition is identified. The small bowel is decompressed. There is some fluid within the appendix. A small amount of free fluid in the dependent portion of the pelvis is seen. No definite inflammatory process is identified. The bladder is unremarkable. IMPRESSION: 1. Diffuse colonic distention, likely on the basis of colonic ileus. 2. Hepatic steatosis. Dictated by: Dictated on workstation # [id number]
[2017-11-01] MEDS: ASPIRIN E.C. 81 MG (ECOTRIN) TAB PO SCH (11:00)
[2017-11-01] MEDS: SENNA W/DOCUSATE (SENOKOT S) TABLET PO SCH ×2 (11:01→20:52)
[2017-11-01] MEDS ORDERED: FLEET ENEMA ADULT 1 EA BTL PR NR (12:45)
--- NOTE | 2017-11-01 12:48 | Progress Note (SOAP) ---
Subjective Date Seen by Provider: Nov 01, 2017 Time Seen by Provider: 12:44 Subjective/Events-last exam Currently still complains of mild nausea and lack of appetite. Still has not had a bowel movement. Doing well as far as ambulating 200ft with minimal assistance using a walker. c/o abdominal pain at 4/10 this AM and a CT scan was ordered. Objective Exam Vital Signs Date Time Temp Pulse Resp B/P (MAP) Pulse Ox O2 Delivery O2 Flow Rate FiO2 11/01/17 09:00 Room Air 11/01/17 07:59 100.2 97 16 173/93 (119) 94 Room Air 11/01/17 00:59 99.3 11/01/17 00:52 100.1 100 18 166/78 (107) 95 Room Air 10/31/17 18:14 100.1 10/31/17 15:52 99.9 97 16 171/79 (109) 96 Room Air I & O 11/01/17 07:00 Intake Total 3480 ml Output Total 1 ml Balance 3479 ml Capillary Refill : Less Than 3 Seconds General Appearance: No Apparent Distress Respiratory: Chest Non Tender, Lungs Clear, Normal Breath Sounds, No Accessory Muscle Use Cardiovascular: Regular Rate, Rhythm, No Edema, No JVD, No Murmur, Normal Peripheral Pulses Gastrointestinal: normal bowel sounds, non tender, soft Extremity: Normal Capillary Refill, Normal Inspection, No Calf Tenderness, No Pedal Edema Neurologic/Psychiatric: Alert, Oriented x3, No Motor/Sensory Deficits, Normal 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, 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 Norm as Tested Skin: Normal Color, Warm/Dry (dressing CDI left knee) Results Lab Laboratory Tests 11/01/17 06:09: White Blood Count 15.5H, Red Blood Count 3.73L, Hemoglobin 11.3L, Hematocrit 34L , Mean Corpuscular Volume 92, Mean Corpuscular Hemoglobin 30, Mean Corpuscular Hemoglobin Concent 33, Red Cell Distribution Width 13.7, Platelet Count 214, Mean Platelet Volume 9.5, Neutrophils (%) (Auto) 85H, Lymphocytes (%) (Auto) 7L , Monocytes (%) (Auto) 8, Eosinophils (%) (Auto) 0, Basophils (%) (Auto) 0, Neutrophils # (Auto) 13.1H, Lymphocytes # (Auto) 1.1, Monocytes # (Auto) 1.2H, Eosinophils # (Auto) 0.1, Basophils # (Auto) 0.0, Neutrophils % (Manual) 88, Lymphocytes % (Manual) 8, Monocytes % (Manual) 4, Blood Morphology Comment NORMAL, Sodium Level 137, Potassium Level 4.1, Chloride Level 105, Carbon Dioxide Level 26, Anion Gap 6, Blood Urea Nitrogen 12, Creatinine 0.71, Estimat Glomerular Filtration Rate > 60, BUN/Creatinine Ratio 17, Glucose Level 138H, Calcium Level 8.5, Total Bilirubin 0.6, Aspartate Amino Transf (AST/SGOT) 20, Alanine Aminotransferase (ALT/SGPT) 16, Alkaline Phosphatase 64, Total Protein 5.7L, Albumin 3.0L Microbiology 10/30/17 Urine Culture - Final, Complete Radiology CT scan shows evidence of colonic ileus Assessment/Plan Assessment/Plan Assess & Plan/Chief Complaint A: s/p left TKA POD #3, constipation, nausea and vomiting secondary to ileus, post operative colonic ileus P: I spoke with Dr. Long. Reglan 5mg IV ordered. fleets enema now, if no results do soap suds enema. If she can have a bowel movement, her low grade fever and HTN will likely resolve. Then she can be DC'd to home today with [facility] physical therapy 5x/week x 2 weeks. Clinical Quality Measures DVT/VTE Risk/Contraindication: Risk Factor Score Per Nursin RFS Level Per Nursing on Admit: 4+=Very High TERESA FRANCIS APRN Nov 01, 2017 12:48 pm
[2017-11-01] MEDS ORDERED: ONDA4TAB8 PO (12:52)
[2017-11-01] MEDS ORDERED: SCOP1PAT TOP (12:52)
[2017-11-01] MEDS: METOCLOPRAMIDE INJ 10 MG/2 ML (REGLAN) IVP PRN (13:38)
--- NOTE | 2017-11-01 14:14 | Physical Therapy Progress Note ---
Therapy Progress Note Pt is on BSC upon arrival. Pt declines tx at this time due to fatigue and "still feeling bad". Pt reports still vomiting, and having nausea. 1, declined PRINCESS RAMOS HOUSEKEEPER MANAGER Nov 01, 2017 14:14
--- NOTE | 2017-11-01 14:40 | Progress Note (SOAP) ---
Subjective Date Seen by Provider: Nov 01, 2017 Time Seen by Provider: 14:37 Subjective/Events-last exam Fwup Left TKR, constipation, hyperglycemia. Still no BM so had CT scan of abdomen this morning which shows ileus with impaction in descending colon. Is passing more gas and has had 1 soaps suds enema. Objective Exam Vital Signs Date Time Temp Pulse Resp B/P (MAP) Pulse Ox O2 Delivery O2 Flow Rate FiO2 11/01/17 09:00 Room Air 11/01/17 07:59 100.2 97 16 173/93 (119) 94 Room Air 11/01/17 00:59 99.3 11/01/17 00:52 100.1 100 18 166/78 (107) 95 Room Air 10/31/17 18:14 100.1 10/31/17 15:52 99.9 97 16 171/79 (109) 96 Room Air I & O 11/01/17 07:00 Intake Total 3480 ml Output Total 1 ml Balance 3479 ml Capillary Refill : Less Than 3 Seconds General Appearance: No Apparent Distress Neck: Supple Respiratory: Lungs Clear Cardiovascular: Regular Rate, Rhythm Gastrointestinal: non tender, soft, abnormal bowel sounds (more active BS today ), distended Extremity: Non Tender, No Calf Tenderness, No Pedal Edema Neurologic/Psychiatric: Alert, Oriented x3 Skin: Other (left knee with dry dressing in place) Results Lab Laboratory Tests 11/01/17 06:09: White Blood Count 15.5H, Red Blood Count 3.73L, Hemoglobin 11.3L, Hematocrit 34L , Mean Corpuscular Volume 92, Mean Corpuscular Hemoglobin 30, Mean Corpuscular Hemoglobin Concent 33, Red Cell Distribution Width 13.7, Platelet Count 214, Mean Platelet Volume 9.5, Neutrophils (%) (Auto) 85H, Lymphocytes (%) (Auto) 7L , Monocytes (%) (Auto) 8, Eosinophils (%) (Auto) 0, Basophils (%) (Auto) 0, Neutrophils # (Auto) 13.1H, Lymphocytes # (Auto) 1.1, Monocytes # (Auto) 1.2H, Eosinophils # (Auto) 0.1, Basophils # (Auto) 0.0, Neutrophils % (Manual) 88, Lymphocytes % (Manual) 8, Monocytes % (Manual) 4, Blood Morphology Comment NORMAL, Sodium Level 137, Potassium Level 4.1, Chloride Level 105, Carbon Dioxide Level 26, Anion Gap 6, Blood Urea Nitrogen 12, Creatinine 0.71, Estimat Glomerular Filtration Rate > 60, BUN/Creatinine Ratio 17, Glucose Level 138H, Calcium Level 8.5, Total Bilirubin 0.6, Aspartate Amino Transf (AST/SGOT) 20, Alanine Aminotransferase (ALT/SGPT) 16, Alkaline Phosphatase 64, Total Protein 5.7L, Albumin 3.0L Microbiology 10/30/17 Urine Culture - Final, Complete Assessment/Plan Assessment/Plan Assess & Plan/Chief Complaint 1. Left Knee OA--S/P Left TKR--pain control, PT/OT, DVT prophylaxis with lovenox, plan is home once has BM 2. Constipation/Fecal Impaction/Post-op Ileus--soaps suds enemas until starts going 3. Hyperglycemia--better 4. UTI--on rocephin 5. Nausea--improved with scopolamine patch but still poor appetite so will continue IVFs Clinical Quality Measures DVT/VTE Risk/Contraindication: Risk Factor Score Per Nursin RFS Level Per Nursing on Admit: 4+=Very High BELKIS CHAUDHARY DO Nov 01, 2017 2:40 pm
[2017-11-01] MEDS: ACETAMINOPHEN 325 MG TABLET/CAPLET (TYLENOL) PO PRN (16:20)
[2017-11-01 16:48] VITALS: BP 161/72
[2017-11-01] MEDS: POLYETHYLENE GLYCOL 17 GM (MIRALAX) PACK PO SCH (20:52)
[2017-11-02] VITALS: BP 165/75
[2017-11-02] MEDS: cefTRIAXone INJECTION 1,000 MG in NS (IVPB) 50 ML IV SCH (02:00)
[2017-11-02 08:00] VITALS: BP 174/80
[2017-11-02] MEDS: METOCLOPRAMIDE INJ 10 MG/2 ML (REGLAN) IVP PRN (08:15)
[2017-11-02] MEDS: ASPIRIN E.C. 81 MG (ECOTRIN) TAB PO SCH (08:24)
[2017-11-02] MEDS: SENNA W/DOCUSATE (SENOKOT S) TABLET PO SCH ×2 (08:24→20:36)
[2017-11-02] MEDS: ACETAMINOPHEN 325 MG TABLET/CAPLET (TYLENOL) PO PRN (08:24)
[2017-11-02] MEDS: LACTULOSE SYRUP 10GM/15ML (ENULOSE) 30ML UDC PO SCH ×2 (09:57→20:36)
[2017-11-02] MEDS: DOCUSATE SODIUM 100 MG (COLACE) CAP PO SCH ×2 (09:57→20:36)
[2017-11-02] MEDS ORDERED: MAGNESIUM CITRATE 300 ML BTL PO ONE (10:00)
--- NOTE | 2017-11-02 10:08 | Progress Note (SOAP) ---
Subjective Date Seen by Provider: Nov 02, 2017 Time Seen by Provider: 10:04 Subjective/Events-last exam States nausea is improved. Had 4 enemas yesterday with no significant bowel movement. She does have improvement of appetite. Ambulated 150 feet this AM. Daughter at bedside. Objective Exam Vital Signs Date Time Temp Pulse Resp B/P (MAP) Pulse Ox O2 Delivery O2 Flow Rate FiO2 11/02/17 08:00 99.2 86 20 174/80 (111) 97 Room Air 11/02/17 00:00 99.7 84 16 165/75 (105) 95 Room Air 11/01/17 20:50 Room Air 11/01/17 16:48 98.7 88 20 161/72 (101) 97 Room Air I & O 11/02/17 07:00 Intake Total 1800 ml Output Total 325 ml Balance 1475 ml Capillary Refill : Less Than 3 Seconds General Appearance: No Apparent Distress Gastrointestinal: normal bowel sounds, non tender, soft, no organomegaly, no pulsatile mass Extremity: Normal Capillary Refill, Normal Inspection, No Calf Tenderness, No Pedal Edema Neurologic/Psychiatric: Alert, Oriented x3, No Motor/Sensory Deficits, Normal Mood/Affect Skin: Normal Color, Warm/Dry (dressing CDI left knee. diffuse mild ecchymosis and swelling to left knee, mild erythema at incision appears to be normal post op inflammatory response) Results Lab Microbiology 10/30/17 Urine Culture - Final, Complete Assessment/Plan Assessment/Plan Assess & Plan/Chief Complaint A: s/p left TKA POD #5 constipation nausea and vomiting secondary to ileus (improved) post operative colonic ileus Hypertension and borderline fever secondary to ileus resolved hyperglycemia P: Continue current treatment. Ortho signing off at this point. She is doing very well regarding her knee. Once cleared medically she may be discharged to home with home healthcare physical therapy 5x/week x 2 weeks. Scripts on chart. Will speak with Dr. Dasilva about patient and transfer care. Clinical Quality Measures DVT/VTE Risk/Contraindication: Risk Factor Score Per Nursin RFS Level Per Nursing on Admit: 4+=Very High TERESA FRANCIS APRN Nov 02, 2017 10:08 am
[2017-11-02] MEDS: NS IV 1000 ML 1,000 ML IV SCH ×2 (11:11→21:03)
--- NOTE | 2017-11-02 12:50 | Progress Note-Hospitalist ---
Subjective HPI/CC On Admission Date Seen by Provider: Nov 02, 2017 Time Seen by Provider: 12:00 Subjective/Events-last exam Patient has developed a postop ileus and still has not had her bowels moved. He has abdominal distention but very little pain with this. She had a scant amount of emesis this morning. Otherwise she's very pleased with the results of her knee replacement. Review of Systems Gastrointestinal: Nausea Objective Exam Vital Signs Vital Signs Date Time Temp Pulse Resp B/P (MAP) Pulse Ox O2 Delivery O2 Flow Rate FiO2 10/28/17 06:40 97.0 88 18 163/84 (110) 97 Room Air 10/28/17 11:45 2.00 Capillary Refill : Less Than 3 Seconds General Appearance: No Apparent Distress HEENT: Normal ENT Inspection Respiratory: Lungs Clear, Normal Breath Sounds, No Accessory Muscle Use, No Respiratory Distress Cardiovascular: Regular Rate, Rhythm, No Gallop, No Murmur Gastrointestinal: Non Tender, Abnormal Bowel Sounds, Distended Rectal: Deferred Assessment/Plan Assessment and Plan Assess & Plan/Chief Complaint 1. Left Knee OA--S/P Left TKR--pain control, PT/OT, DVT prophylaxis with lovenox, plan is home once has BM 2. Constipation/Fecal Impaction/Post-op Ileus--we'll obtain a KUB today 3. Hyperglycemia--better 4. UTI--on rocephin 5. Nausea--improved with scopolamine patch but still poor appetite so will continue IVFs ISAIAS MOREL MD Nov 02, 2017 12:50 pm
--- NOTE | 2017-11-02 13:05 | Physical Therapy Daily Note ---
PT Daily Note-Current Subjective Pt. and niece state pt. has ambulated all over the unit today and yesterday, " My knee is great, doing fine, I CANNOT have a BM" "That is what Im waiting for, they wont let me leave til I do" Pt. drinking Mag citrate now. Pain Numeric Pain Scale: 0-No Pain Mental Status Patient Orientation: Normal For Age Transfers Functional [place] Measure 0=Not Assessed/NA 4=Minimal Assistance 1=Total Assistance 5=Supervision or Setup 2=Maximal Assistance 6=Modified [place] 3=Moderate Assistance 7=Complete IndependenceIRFPAI Quality Coding Scale 6 Independent with activity with or without an assistive device 5 Patient requires set up or clean up by helper. Patient completes activity by themselves 4 Supervision or touching assist (CGA). [place] provide cues , steadying assist 3 The helper provides less than half the effort to complete the activity 2 The helper provides more than half the effort to complete the activity 1 Dependent. The helper does all the effort to complete an activity 7 Patient refused to complete or attempt activity 9 The patient did not perform the activity before the current illness or injury 88 Not attempted due to Medical conditions or safety concerns mod I Weight Bearing Right Lower Extremity: Right Full Weight Bearing Left Lower Extremity: Left Full Weight Bearing Exercises Seated Therapy Exercises: Ankle pumps, Sit to stand, Long arc quads, Hip flexion, Hamstring Curls, Hip abd/add Seated Reps: 12 Assessment Current Status: Good Progress AROM: 0-75 degrees PT Short Term Goals Short Term Goals Time Frame: Nov 01, 2017 Transfers (B,C,W/C) (FIM): 6 Gait (FIM): 6 Distance (FIM): 3=150 ft Gait Distance Comment: 250' Gait Level of Assist: 6 Gait Assistive Device: FWW Stairs (FIM): 5 # of Steps: 3 Stairs Level of Assist: 5 PT Ret[facility] Goals [employer] Display Builder Goals Rollin PT Plan Treatment/Plan Treatment Plan: Continue Plan of Care Treatment Plan: Education, Functional Activity Cal, Functional Strength, Gait , Safety, Therapeutic Exercise, Transfers Treatment Duration: Nov 01, 2017 Frequency: 7 times per week Estimated Hrs Per Day: .5 hour per day Patient and/or Family Agrees t: Yes Safety Risks/Education Patient Education: Transfer Techniques, Issued Written HEP, Correct Positioning , Safety Issues Teaching Recipient: Patient Teaching Methods: Demonstration, Discussion Response to Teaching: Verbalize Understanding, Reinforcement Needed discussed home therapy services and eventually OP therapies. Pt. has FT assist of family at home Time/GCodes Time In: 1205 Time Out: 1225 Total Billed Treatment Time: 20 Total Billed Treatment 1,EX20m G Codes Necessary: BRAEDEN Alaniz FILM INSPECTOR Nov 02, 2017 13:05
[2017-11-02 15:42] VITALS: BP 187/83
[2017-11-02 16:32] VITALS: BP 181/82
[2017-11-02] MEDS: meTOproloL SUCCINATE 50 MG (TOPROL XL) TAB PO SCH (16:46)
--- NOTE | 2017-11-02 16:49 | Diagnostic Imaging Report ---
INDICATION: Ileus. COMPARISON: 10/30/2017. TECHNIQUE: 3 radiographs of abdomen dated 11/02/2017 FINDINGS: The visualized lung bases are clear. Gaseous distention of both the colon and small bowel is identified, appearing more prominent than the prior examination. Multiple air-fluid levels are seen throughout the abdomen. No free air. No pneumatosis. Scattered osseous degenerative changes without acute osseous abnormality. IMPRESSION: Increasing gaseous distention of both small and large bowel without free air. Findings are favored early to worsening ileus. Distal bowel obstruction not completely excluded. Recommend clinical correlation and continued followup. Dictated by: Dictated on workstation # [id number]
[2017-11-02] MEDS: POLYETHYLENE GLYCOL 17 GM (MIRALAX) PACK PO SCH (20:36)
[2017-11-02 23:52] VITALS: BP 177/83
[2017-11-03] MEDS: cefTRIAXone INJECTION 1,000 MG in NS (IVPB) 50 ML IV SCH (00:49)
[2017-11-03] MEDS: SCOPOLAMINE 1.5 MG (TRANSDERM-SCOP) PATCH TOP SCH (00:49)
[2017-11-03 04:38] LABS: BASOPHILS % (AUTO) 0 % (0-10); EOSINOPHILS # (AUTO) 0.4 10^3/uL (0.0-0.3); EOSINOPHILS % (AUTO) 5 % (0-10); HEMATOCRIT 33 % (35-52); HEMOGLOBIN 10.8 G/DL (11.5-16.0); LYMPHOCYTES # (AUTO) 1.6 X 10^3 (1.0-4.0); LYMPHOCYTES % (AUTO) 18 % (12-44); MEAN CORPUSCULAR HEMOGLOBIN 31 PG (25-34); MEAN CORPUSCULAR HGB CONC 33 G/DL (32-36); MEAN CORPUSCULAR VOLUME 93 FL (80-99); MONOCYTES % (AUTO) 11 % (0-12); NEUTROPHILS # (AUTO) 6.1 X 10^3 (1.8-7.8); NEUTROPHILS % (AUTO) 66 % (42-75); PLATELET COUNT 241 10^3/uL (130-400); RED BLOOD COUNT 3.52 10^6/uL (4.35-5.85); RED CELL DISTRIBUTION WIDTH 13.6 % (10.0-14.5); WHITE BLOOD COUNT 9.1 10^3/uL (4.3-11.0)
[2017-11-03 05:21] LABS: ALANINE AMINOTRANSFERASE 16 U/L (0-55); ALKALINE PHOSPHATASE 60 U/L (40-136); BILIRUBIN,TOTAL 0.6 MG/DL (0.1-1.0); BUN/CREATININE RATIO 13; CALCIUM 8.3 MG/DL (8.5-10.1); CARBON DIOXIDE 24 MMOL/L (21-32); CHLORIDE 106 MMOL/L (98-107); CREATININE SERUM 0.68 MG/DL (0.60-1.30); GFR ESTIMATED > 60; GLUCOSE 96 MG/DL (70-105); SODIUM 137 MMOL/L (135-145); TOTAL PROTEIN 5.4 GM/DL (6.4-8.2)
[2017-11-03 08:00] VITALS: BP 173/76
[2017-11-03 08:09] VITALS: BP 173/76
[2017-11-03] MEDS: meTOproloL SUCCINATE 50 MG (TOPROL XL) TAB PO SCH (08:10)
[2017-11-03] MEDS: DOCUSATE SODIUM 100 MG (COLACE) CAP PO SCH ×2 (08:10→20:37)
[2017-11-03] MEDS: ASPIRIN E.C. 81 MG (ECOTRIN) TAB PO SCH (08:10)
[2017-11-03] MEDS: ACETAMINOPHEN 325 MG TABLET/CAPLET (TYLENOL) PO PRN ×2 (08:10→17:04)
[2017-11-03] MEDS: LACTULOSE SYRUP 10GM/15ML (ENULOSE) 30ML UDC PO SCH ×2 (08:11→20:15)
[2017-11-03] MEDS: SENNA W/DOCUSATE (SENOKOT S) TABLET PO SCH ×2 (08:11→20:33)
--- NOTE | 2017-11-03 09:31 | Progress Note-Hospitalist ---
Subjective HPI/CC On Admission Date Seen by Provider: Nov 03, 2017 Time Seen by Provider: 09:30 Subjective/Events-last exam Patient has had multiple bowel movements. She has had no nausea or vomiting. She feels like her abdomen is softer and less distended. She has developed some high blood pressure and was started on Toprol-XL 50 mg daily yesterday. She has not had high blood pressure in the past. Review of Systems Gastrointestinal: Constipation Neurological: Confusion (Daughter notes that she has had a little bit of confusion) Objective Exam Vital Signs Vital Signs Date Time Temp Pulse Resp B/P (MAP) Pulse Ox O2 Delivery O2 Flow Rate FiO2 10/28/17 06:40 97.0 88 18 163/84 (110) 97 Room Air 10/28/17 11:45 2.00 Capillary Refill : Less Than 3 Seconds General Appearance: No Apparent Distress, WD/WN Neck: Full Range of Motion, Supple Respiratory: Lungs Clear, Normal Breath Sounds, No Accessory Muscle Use, No Respiratory Distress Cardiovascular: Regular Rate, Rhythm, No Gallop Gastrointestinal: Non Tender, Abnormal Bowel Sounds, Distended Results/Procedures Lab Laboratory Tests 11/03/17 04:00 Assessment/Plan Assessment and Plan Assess & Plan/Chief Complaint 1. Left Knee OA--S/P Left TKR--pain control, PT/OT, DVT prophylaxis with lovenox, plan is home once ileus has resolved 2. Constipation/Fecal Impaction/Post-op Ileus-improving but exam is still abnormal we'll obtain a follow-up KUB today 3. Hyperglycemia--better 4. UTI--on rocephin 5. Nausea--improved with scopolamine patch but still poor appetite so will continue IVFs 6. Hypertension started on Toprol-XL 50 mg a day this may need to be continued as an outpatient. ISAIAS MOREL MD Nov 03, 2017 09:31
--- NOTE | 2017-11-03 12:47 | Physical Therapy Daily Note ---
PT Daily Note-Current Subjective Pt. up in chair and agrees to therapy. Reports she has had multiple bowel movements and will likely D/C tomorrow. She denies pain at present time. Mental Status Patient Orientation: Normal For Age Transfers Functional [place] Measure 0=Not Assessed/NA 4=Minimal Assistance 1=Total Assistance 5=Supervision or Setup 2=Maximal Assistance 6=Modified [place] 3=Moderate Assistance 7=Complete IndependenceIRFPAI Quality Coding Scale 6 Independent with activity with or without an assistive device 5 Patient requires set up or clean up by helper. Patient completes activity by themselves 4 Supervision or touching assist (CGA). [place] provide cues , steadying assist 3 The helper provides less than half the effort to complete the activity 2 The helper provides more than half the effort to complete the activity 1 Dependent. The helper does all the effort to complete an activity 7 Patient refused to complete or attempt activity 9 The patient did not perform the activity before the current illness or injury 88 Not attempted due to Medical conditions or safety concerns Transfers (B, C, W/C) (FIM): 6 Sit to/from Stand: 6 Weight Bearing Right Lower Extremity: Right Full Weight Bearing Left Lower Extremity: Left Full Weight Bearing Gait Training Gait (FIM): 6 Distance (FIM): 3=150 ft Distance: 250 ft Gait Level of Assist: 6 Gait Assistive Device: FWW smooth gait pattern, good heel to toe on L Stair Training Stair Training: Handrails/: 2 handrails Stairs (FIM): 2 #of Steps: 4 Stairs: Pattern: Step to Level of Assist: 4 Exercises Supine Ex: Ankle pumps, Quad Set, Straight leg raise Supine Reps: 15 Seated Therapy Exercises: Long arc quads, Hip flexion, Hamstring Curls Seated Reps: 15 Treatments L LE exercises, gait, stair training Assessment Current Status: Good Progress Pt. is progressing very well with therapy. She has good quad contraction and achieving near 90 deg knee flexion with exercises. Pt. has a smooth gait pattern and good gait speed, she completed stairs with CGA/SBA. Pt. returned to bedside chair, planned to get cleaned up and would put the CPM and polar care on L knee. All needs met post session, planning D/C tomorrow. PT Short Term Goals Short Term Goals Time Frame: Nov 01, 2017 Transfers (B,C,W/C) (FIM): 6 Gait (FIM): 6 Distance (FIM): 3=150 ft Gait Distance Comment: 250' Gait Level of Assist: 6 Gait Assistive Device: FWW Stairs (FIM): 5 # of Steps: 3 Stairs Level of Assist: 5 PT Plan Treatment/Plan Treatment Plan: Continue Plan of Care Treatment Plan: Education, Functional Activity Cal, Functional Strength, Gait , Safety, Therapeutic Exercise, Transfers Treatment Duration: Nov 01, 2017 Frequency: 7 times per week Estimated Hrs Per Day: .5 hour per day Patient and/or Family Agrees t: Yes Time/GCodes Time In: 1150 Time Out: 1210 Total Billed Treatment Time: 20 Total Billed Treatment 1, Ex 20' SANDOR CAMARILLO PT Nov 03, 2017 12:47
--- NOTE | 2017-11-03 13:26 | Diagnostic Imaging Report ---
Indication: Followup ileus Comparison: 11/02/2017 Technique: Two radiographs of the abdomen dated 11/03/2017. Findings: The visualized lung bases are clear. Gas filled loops of large and small bowel are again identified. The degree of gaseous distention has decreased since the prior examination. Currently, no dilated loops of bowel. No free air. Scattered osseous degenerative changes. The remainder of the examination appears stable. Impression: Decreased gaseous distention of the large and small bowel, favored to relate to improving ileus. Dictated by: Dictated on workstation # [id number]
[2017-11-03 15:18] VITALS: BP_SYST 155; BP_SYST 177; BP_DIAS 79; BP_DIAS 84
[2017-11-03] MEDS: POLYETHYLENE GLYCOL 17 GM (MIRALAX) PACK PO SCH (20:15)
[2017-11-04 00:40] VITALS: BP 153/77
[2017-11-04] MEDS: cefTRIAXone INJECTION 1,000 MG in NS (IVPB) 50 ML IV SCH (01:25)
[2017-11-04 05:14] LABS: BASOPHILS # (AUTO) 0.1 10^3/uL (0.0-0.1); BASOPHILS % (AUTO) 1 % (0-10); EOSINOPHILS # (AUTO) 0.5 10^3/uL (0.0-0.3); EOSINOPHILS % (AUTO) 5 % (0-10); HEMATOCRIT 35 % (35-52); HEMOGLOBIN 11.5 G/DL (11.5-16.0); LYMPHOCYTES # (AUTO) 1.6 X 10^3 (1.0-4.0); LYMPHOCYTES % (AUTO) 18 % (12-44); MEAN CORPUSCULAR HEMOGLOBIN 30 PG (25-34); MEAN CORPUSCULAR HGB CONC 33 G/DL (32-36); MEAN CORPUSCULAR VOLUME 92 FL (80-99); MEAN PLATELET VOLUME 8.9 FL (7.4-10.4); MONOCYTES # (AUTO) 0.9 X 10^3 (0.0-1.0); MONOCYTES % (AUTO) 10 % (0-12); NEUTROPHILS % (AUTO) 66 % (42-75); PLATELET COUNT 260 10^3/uL (130-400); RED BLOOD COUNT 3.79 10^6/uL (4.35-5.85); RED CELL DISTRIBUTION WIDTH 13.4 % (10.0-14.5); WHITE BLOOD COUNT 9.1 10^3/uL (4.3-11.0)
[2017-11-04 05:49] LABS: ALANINE AMINOTRANSFERASE 19 U/L (0-55); ALBUMIN 3.1 GM/DL (3.2-4.5); ALKALINE PHOSPHATASE 63 U/L (40-136); BILIRUBIN,TOTAL 0.7 MG/DL (0.1-1.0); BUN/CREATININE RATIO 12; CALCIUM 8.6 MG/DL (8.5-10.1); CARBON DIOXIDE 24 MMOL/L (21-32); CHLORIDE 106 MMOL/L (98-107); CREATININE SERUM 0.69 MG/DL (0.60-1.30); GFR ESTIMATED > 60; GLUCOSE 103 MG/DL (70-105); POTASSIUM 3.8 MMOL/L (3.6-5.0); SODIUM 139 MMOL/L (135-145); TOTAL PROTEIN 5.6 GM/DL (6.4-8.2)
[2017-11-04 08:00] VITALS: BP 176/77
[2017-11-04] MEDS: LACTULOSE SYRUP 10GM/15ML (ENULOSE) 30ML UDC PO SCH (08:32)
[2017-11-04] MEDS: ASPIRIN E.C. 81 MG (ECOTRIN) TAB PO SCH (08:32)
[2017-11-04] MEDS: meTOproloL SUCCINATE 50 MG (TOPROL XL) TAB PO SCH (08:32)
[2017-11-04] MEDS: SENNA W/DOCUSATE (SENOKOT S) TABLET PO SCH (08:32)
[2017-11-04] MEDS: DOCUSATE SODIUM 100 MG (COLACE) CAP PO SCH (08:33)
--- NOTE | 2017-11-04 09:35 | Physical Therapy Daily Note ---
PT Daily Note-Current Subjective Patient reports she is feeling much better. Agrees to PT. Pain Numeric Pain Scale: 2 Location: Left Location Body Site: Knee Pain Description: Acute Mental Status Patient Orientation: Normal For Age Transfers Functional [place] Measure 0=Not Assessed/NA 4=Minimal Assistance 1=Total Assistance 5=Supervision or Setup 2=Maximal Assistance 6=Modified [place] 3=Moderate Assistance 7=Complete IndependenceIRFPAI Quality Coding Scale 6 Independent with activity with or without an assistive device 5 Patient requires set up or clean up by helper. Patient completes activity by themselves 4 Supervision or touching assist (CGA). [place] provide cues , steadying assist 3 The helper provides less than half the effort to complete the activity 2 The helper provides more than half the effort to complete the activity 1 Dependent. The helper does all the effort to complete an activity 7 Patient refused to complete or attempt activity 9 The patient did not perform the activity before the current illness or injury 88 Not attempted due to Medical conditions or safety concerns Transfers (B, C, W/C) (FIM): 6 Scootin Sit to/from Stand: 6 Weight Bearing Right Lower Extremity: Right Full Weight Bearing Left Lower Extremity: Left Full Weight Bearing Gait Training Gait (FIM): 6 Distance (FIM): 3=150 ft Distance: >500' Gait Level of Assist: 6 Gait Assistive Device: FWW safe and functional Exercises Seated Therapy Exercises: Ankle pumps, Long arc quads, Hip flexion, Hip abd/add Seated Reps: 15 (bilaterally) Assessment Current Status: Excellent Progress Patient to dismiss to home on this date. Home Health to begin. PT Short Term Goals Short Term Goals Time Frame: Nov 01, 2017 Transfers (B,C,W/C) (FIM): 6 Gait (FIM): 6 Distance (FIM): 3=150 ft Gait Distance Comment: 250' Gait Level of Assist: 6 Gait Assistive Device: FWW Stairs (FIM): 5 # of Steps: 3 Stairs Level of Assist: 5 PT Plan Treatment/Plan Treatment Plan: Discontinue PT, goals met Treatment Plan: Education, Functional Activity Cal, Functional Strength, Gait , Safety, Therapeutic Exercise, Transfers Treatment Duration: Nov 01, 2017 Frequency: 7 times per week Estimated Hrs Per Day: .5 hour per day Patient and/or Family Agrees t: Yes Time/GCodes Time In: 845 Time Out: 857 Total Billed Treatment Time: 12 Total Billed Treatment 1 visit FA 12 min THAI CERVANTES PT Nov 04, 2017 09:35
[2017-11-04] MEDS ORDERED: METO50TA15 PO (13:16)
[2017-11-04] MEDS ORDERED: POLY17PO23 PO (13:16)
--- NOTE | 2017-11-04 13:17 | Discharge Inst-Simple/Standard ---
Discharge Inst-Standard Discharge Medications New, Converted or Re-Newed RX: Transmitted to Pharmacy Patient Instructions/Follow Up Plan of Care/Instructions/FU: Fwup with me in 1 week Activity as Tolerated: Yes Discharge Diet: ADA Diet BELKIS CHAUDHARY DO Nov 04, 2017 13:17
[2017-11-04 13:49] VITALS: BP 176/77
--- NOTE | 2017-11-04 20:03 | Progress Note (SOAP) ---
Subjective Date Seen by Provider: Nov 04, 2017 Time Seen by Provider: 12:45 Subjective/Events-last exam Fwup Hypertension, UTI, post-op ileus with N/V, hyperglycemia, S/P left TKR. Doing much better. Having routine bowel movements with no abdominal pain or distention and eating a regular diet with no nausea. Objective Exam Vital Signs Date Time Temp Pulse Resp B/P (MAP) Pulse Ox O2 Delivery O2 Flow Rate FiO2 11/04/17 13:49 78 20 176/77 95 Room Air 2.00 11/04/17 08:00 95 Room Air 11/04/17 08:00 99.0 78 20 176/77 (110) 97 Room Air 11/04/17 00:40 98.4 80 17 153/77 (102) 95 Room Air 11/03/17 20:00 Room Air I & O 11/04/17 07:00 Intake Total 2130 ml Balance 2130 ml Capillary Refill : Less Than 3 Seconds General Appearance: No Apparent Distress Respiratory: Lungs Clear Cardiovascular: Regular Rate, Rhythm Gastrointestinal: normal bowel sounds, non tender, soft Extremity: Non Tender, No Calf Tenderness, No Pedal Edema Neurologic/Psychiatric: Alert, Oriented x3 Skin: Warm/Dry (dressing dry and in place) Results Lab Laboratory Tests 11/04/17 05:02: White Blood Count 9.1, Red Blood Count 3.79L, Hemoglobin 11.5, Hematocrit 35, Mean Corpuscular Volume 92, Mean Corpuscular Hemoglobin 30, Mean Corpuscular Hemoglobin Concent 33, Red Cell Distribution Width 13.4, Platelet Count 260, Mean Platelet Volume 8.9, Neutrophils (%) (Auto) 66, Lymphocytes (%) (Auto) 18, Monocytes (%) (Auto) 10, Eosinophils (%) (Auto) 5, Basophils (%) (Auto) 1, Neutrophils # (Auto) 6.0, Lymphocytes # (Auto) 1.6, Monocytes # (Auto) 0.9, Eosinophils # (Auto) 0.5H, Basophils # (Auto) 0.1, Sodium Level 139, Potassium Level 3.8, Chloride Level 106, Carbon Dioxide Level 24, Anion Gap 9, Blood Urea Nitrogen 8, Creatinine 0.69, Estimat Glomerular Filtration Rate > 60, BUN/ Creatinine Ratio 12, Glucose Level 103, Calcium Level 8.6, Total Bilirubin 0.7, Aspartate Amino Transf (AST/SGOT) 22, Alanine Aminotransferase (ALT/SGPT) 19, Alkaline Phosphatase 63, Total Protein 5.6L, Albumin 3.1L Microbiology 10/30/17 Urine Culture - Final, Complete Assessment/Plan Assessment/Plan Assess & Plan/Chief Complaint 1. Left Knee OA--S/P Left TKR--home with home health 2. Constipation/Fecal Impaction/Post-op Ileus--resolved 3. Hyperglycemia--better, discussed diet and exercise and rechecking a HbA1C in 3mos as outpatient 4. UTI--improved 5. Nausea/Vomiting--resolved 6. Hypertension--home on metoprolol 50mg po BID and monitor BP Clinical Quality Measures DVT/VTE Risk/Contraindication: Risk Factor Score Per Nursin RFS Level Per Nursing on Admit: 4+=Very High BELKIS CHAUDHARY DO Nov 04, 2017 8:03 pm
== END 2017-11-04 14:30 | disposition home health service (06) | DRG 470 ==
LOC: 4TH 06:15 → SURG 06:16 → 4TH 11:48
PROVIDERS: ADMIT Orthopaedic Surgery; ATTEND Orthopaedic Surgery
PROC: 3E0T3BZ Introduction of Anesthetic Agent into Peripheral Nerves and Plexi, Percutaneous Approach (ICD-10-PCS; 2017-10-28)
PROC: 0SRD0J9 Replacement of Left Knee Joint with Synthetic Substitute, Cemented, Open Approach (ICD-10-PCS; principal; 2017-10-28 07:45)
DX: M17.12 Unilateral primary osteoarthritis, left knee (principal); N39.0 Urinary tract infection, site not specified; K91.89 Other postprocedural complications and disorders of digestive system; K56.41 Fecal impaction; R73.9 Hyperglycemia, unspecified; I10 Essential (primary) hypertension; R11.0 Nausea; T40.2X5A Adverse effect of other opioids, initial encounter
CPT/HCPCS: 36415; 73560; 74018; 74019; 74177; 80048; 80053; 81000; 83036; 85007; 85014; 85018; 85025; 85027; 86850; 86900; 86901; 87088; 94664

== ENCOUNTER 2018-02-06 08:28 | Outpatient (RCR) | payer MEDICARE, OTHER ==
[~2018-02-06 08:28] MED LIST changes: +ASPI-983 PO; +HYDR-3820 PO; +METO50TA15 PO; +ONDA4TAB8 PO; +POLY17PO23 PO; +SCOP1PAT11 TOP; +SENN-20 PO; +TRAM50TA2 PO
== END 2018-02-06 08:57 | disposition home or self-care (01) ==
PROVIDERS: ATTEND Orthopaedic Surgery
DX: Z47.1 Aftercare following joint replacement surgery (principal); Z96.652 Presence of left artificial knee joint

== ENCOUNTER → 2018-12-22 | Outpatient (CLI) | payer MEDICARE, OTHER ==
[~2018-12-22] MED LIST changes: +OCUVITE SOFTGE1 EACH PO; -POLY17PO23 PO; +POLY17PO31 PO; -VIT1CAPS9 PO
--- NOTE | 2018-12-22 10:13 | Diagnostic Imaging Report ---
PROCEDURE: CT chest without contrast. TECHNIQUE: Multiple contiguous axial images were obtained through the chest without the use of intravenous contrast. Auto Exposure Controls were utilized during the CT exam to meet ALARA standards for radiation dose reduction. INDICATION: Lung nodule. FINDINGS: The previous CT chest exam of 07/02/2016 noted a 7 mm nodule in the left apex. That finding is again evident and has not changed adversely (image 6 of 45). The prior study also identified a 5 mm nodular density in the left upper lung. That nodule has decreased in size and now measures 3 mm. There is no new parenchymal nodule identified. The lungs are clear. There is no sign of failure, pneumonia or pleural effusion to indicate an acute abnormality. The heart is mildly enlarged but stable when compared to the prior exam. Coronary artery calcifications are again noted. The aorta is not abnormally dilated. There is no obvious mediastinal or hilar adenopathy. The thyroid gland, where visualized, is unremarkable. The sections through the upper abdomen again show a small 5 mm calculus within the left kidney. There is also a roughly 2 cm hiatal hernia. There is no acute abnormality in the upper abdomen. The bone windows show degenerative disc and bony disease throughout the thoracic spine. There is no sign of an acute bony abnormality or of a destructive lesion. There is no obvious breast mass. IMPRESSION: 1. The small nodule in the left apex seen previously appears stable. Most likely, this is a benign process. The 5 mm nodule in the left upper lung has diminished in size. No new parenchymal abnormality has developed. 2. There is no sign of an acute cardiopulmonary abnormality. 3. There is borderline cardiomegaly and coronary artery disease. 4. There is left nephrolithiasis. Dictated by: Dictated on workstation # [id number]
== END ==
LOC: RAD 08:40
PROVIDERS: ATTEND Family Medicine
DX: I25.10 Atherosclerotic heart disease of native coronary artery without angina pectoris (principal); I51.7 Cardiomegaly; N20.0 Calculus of kidney; R91.8 Other nonspecific abnormal finding of lung field
CPT/HCPCS: 71250

== ENCOUNTER → 2019-04-16 | Outpatient (CLI) | payer MEDICARE, OTHER ==
--- NOTE | 2019-04-16 09:29 | Diagnostic Imaging Report ---
Indication: Left breast pain. Sonographic interrogation of the area of pain was performed. This corresponds to the 2 to 3 o'clock location 10 cm from the nipple as well as the retroareolar region. No sonographic abnormality is seen. No solid or cystic mass is detected. Impression: No sonographic abnormality is detected. If symptoms persist diagnostic mammography could be performed. BI-RADS category 1 ACR BI-RADS Category 1: Negative. Result letter will be mailed to the patient. Note: At least 10% of breast cancer is not imaged by mammography. Dictated by: Dictated on workstation # [id number]
== END ==
LOC: RAD 08:24
PROVIDERS: ATTEND Family Medicine
DX: N64.4 Mastodynia (principal)
CPT/HCPCS: 76642

== ENCOUNTER 2019-08-17 05:40 | Outpatient (CLI) | payer MEDICARE, OTHER ==
[~2019-08-17] VITALS: Ht 162 cm; Wt 75.0 kg
== END 2019-08-17 10:38 ==
LOC: PREOP 05:40
PROVIDERS: ATTEND Internal Medicine
DX: Z01.818 Encounter for other preprocedural examination (principal)

== ENCOUNTER 2019-08-21 08:22 | Day surgery (SDC) | payer MEDICARE, OTHER ==
--- NOTE | 2019-08-10 08:13 | HISTORY AND PHYSICAL ---
DATE OF SERVICE: 08/21/2019 COLONOSCOPY HISTORY AND PHYSICAL HISTORY: The patient is a spry 79-year-old white female referred by Dr. Long for diagnostic colonoscopy. She has a past history of adenomatous colonic polyps, last underwent colonoscopy in 01/2005, which time she had one tubular adenoma removed from the hepatic flexure. There is also family history for colon cancer, the index case being her father diagnosed around the age of 70. She had been concerned over recent onset constipation. She initially tried stool softeners, proves to increasing water intake and was still having to strain to pass hard stool about every other day. She was started on low dose of Linzess 72 mcg daily, which has improved her symptoms. She has noted no blood, bright red or melena, and reports no change in weight. There have been no associated medication changes and she denied abdominal pain. MEDICATIONS ON ADMISSION: Include metoprolol tartrate 50 mg daily, turmeric 1,000 mg tablets one daily, Ocuvite 1 daily, vitamin D3 1000 units daily and p.r.n. extra strength Tylenol. PAST SURGICAL HISTORY: She had right rotator cuff tear repair with no past abdominal surgery history. SOCIAL HISTORY: She has no past smoking or drinking history. She is retired. FAMILY HISTORY: Pertinent for colon cancer in her father diagnosed around the age of 70. REVIEW OF SYSTEMS: CONSTITUTIONAL: She denies night sweats, chills, fever or change in weight. GASTROINTESTINAL: As noted in the HPI. RESPIRATORY: The patient denies cough, wheezing or dyspnea. CARDIOVASCULAR: The patient denies chest pain, palpitations, heart racing syncope, presyncope, orthopnea, PND or pedal edema. PHYSICAL EXAMINATION: GENERAL: Reveals a spry appearing 79-year-old white female in no acute distress. VITAL SIGNS: Blood pressure 130/80, heart rate 70 and regular, weight 169.6 pounds. HEENT: Unremarkable. Sclerae nonicteric. CHEST: Clear to auscultation. CARDIOVASCULAR: Reveals regular rate and rhythm without murmur, S3 or S4. ABDOMEN: Soft, supple without mass, organomegaly or tenderness. EXTREMITIES: Reveal no cyanosis, clubbing or edema. ASSESSMENT AND PLAN: The patient was set up for diagnostic colonoscopy due to recent bowel habit change as well as a past history of adenomatous colonic polyps and a family history for colon cancer, index case being her father diagnosed around the age of 70. Prep instructions with the Suprep kit were given and we will plan on doing this under Diprivan anesthesia. I thank you for the referral of this pleasant lady. Job ID: [id number] DocumentID: [id number] Dictated Date: 08/06/2019 17:16:21 Chief Ultrasound Technologist Date: 08/06/2019 17:38:25 Dictated By: NAIDA RIVERA MD MTDD
[~2019-08-21] VITALS: Ht 162 cm; Wt 75.0 kg
[~2019-08-21 08:22] MED LIST changes: -TRAM50TA2 PO; +TRM50T PO
[2019-08-21] MEDS ORDERED: D5 LR IV SOLUTION 0 ML IV ONE (08:30)
[2019-08-21] MEDS ORDERED: LACTATED RINGERS 1,000 ML IV ONE (08:36)
[2019-08-21] MEDS ORDERED: LACTATED RINGERS 1,000 ML IV STA (08:51)
[2019-08-21] MEDS ORDERED: ceFAZolin INJECTION 1,000 MG in WATER (STERILE) FOR INJECTION 10 ML IV NR (09:00)
[2019-08-21 09:20] VITALS: BP 148/82
[2019-08-21] MEDS ORDERED: ceFAZolin INJECTION 1,000 MG ONE (09:20)
[2019-08-21] MEDS ORDERED: PROPOFOL INJECTION 50 ML IV ONE (09:20)
[2019-08-21] MEDS ORDERED: ONDANSETRON 4 MG/2 ML (SDV) Z0FRAN ONE (09:22)
[2019-08-21] MEDS ORDERED: DEXAMETHASONE 10 MG/ML (DECADRON) 1 ML VIAL ONE (09:22)
[2019-08-21] MEDS: HURRICAINE EXT TUBE (BENZOCAINE) XX PRN ×2 (09:29→09:30)
[2019-08-21] MEDS ORDERED: HURRICAINE EXT TUBE (BENZOCAINE) ONE (09:34)
[2019-08-21] MEDS ORDERED: LIDOCAINE JELLY 2% 6 ML SYRINGE ONE (09:34)
[2019-08-21] MEDS ORDERED: GLYCOPYRROLATE 0.2 MG/ML (ROBINUL) 2 ML VIAL ONE (10:00)
[2019-08-21 10:20] VITALS: BP 153/70
--- NOTE | 2019-08-21 10:23 | Pre-Op Note & Conscious Sedat ---
Pre-Operative Progress Note H&P Reviewed The H&P was reviewed, patient examined and no changes noted. Date H&P Reviewed: Aug 21, 2019 Time H&P Reviewed: 09:10 Conscious Sedation Pre-Proced ASA Score 2 For ASA 3 and 4: Consider anesthesia and medical clearance. Also, for patients with a history of failed moderate sedation consider anesthesia. Airway Lungs Heart ASA score ASA 1: a normal healthy patient ASA 2: a patient with a mild systemic disease (mid diabetes, controlled hypertension, obesity ASA 3: a patient with a severe systemic disease that limits activity (angina, COPD, prior Myocardial infarction) ASA 4: a patient with an incapacitating disease that is a constant threat to life (CHF, renal failure) ASA 5: a moribund patient not expected to survive 24 hrs. (ruptured aneurysm) ASA 6: a declared brain- patient whose organs are being harvested. For emergent operations, add the letter E after the classification Mallampati Classification Grade 2 Sedation Plan Analgesia, Amnesia, Plan communicated to team members, Discussed options with patient/fam, Discussed risks with patient/fam The patient is an appropriate candidate to undergo the planned procedure, sedation, and anesthesia. The patient immediately re-assessed prior to indication. NAIDA RIVERA MD Aug 21, 2019 10:23 POS
[2019-08-21 10:25] VITALS: BP 153/70
[2019-08-21] MEDS ORDERED: LIDOCAINE JELLY 2% 6 ML SYRINGE TOP ONE (10:30)
[2019-08-21 10:50] VITALS: BP 161/73
--- NOTE | 2019-08-21 10:54 | Anesthesia-General Post-Op ---
MAC Patient Condition Mental Status/LOC: Same as Preop Cardiovascular: Satisfactory Nausea/Vomiting: Absent Respiratory: Satisfactory Pain: Controlled Complications: Absent Post Op Complications Complications None Follow Up Care/Instructions Patient Instructions None needed. Anesthesiology Discharge Order Discharge Order Patient is doing well, no complaints, stable vital signs, no apparent adverse anesthesia problems. No complications reported per nursing. ALEJANDRO JOHNSON CRNA Aug 21, 2019 10:54 POS
[2019-08-21 13:51] VITALS: BP 161/73
--- NOTE | 2019-08-21 22:17 | OPERATIVE REPORT ---
DATE OF SERVICE: PANENDOSCOPY SUMMARY EGD is performed for evaluation of dysphagia to solids, especially breads and colonoscopy was performed due to family history for colon cancer and bowel habit change. The patient was placed in the left lateral decubitus position. Prior to undergoing colonoscopy, digital rectal evaluation was performed. There was no evidence for internal or external hemorrhoids. No abnormalities were noted on visual inspection of anal canal or distal rectal vault. The colonoscope was then inserted into the rectum and under direct visualization advanced to cecum. The cecum was identified by identification of ileocecal valve and cecal strap. Photographic documentation was obtained. Careful inspection was made as the colonoscope was withdrawn. FINDINGS: There was no evidence for internal or external hemorrhoids. The rectum was unremarkable, but because of bowel habit change, a biopsy was obtained and submitted for evaluation for microscopic colitis. Several small sigmoid diverticulum were present without evidence for diverticulitis. No other sigmoid colonic abnormalities were appreciated. The descending colon and transverse colon were unremarkable. In the mid ascending colon, there was a questionable polyp. It was biopsied and submitted for histopathology. It had more inflammatory features. The remainder of the ascending colon and cecum were unremarkable. ASSESSMENT: 1. Mild diverticular disease confined to the sigmoid colon is present without evidence for diverticulitis. 2. One small inflammatory-appearing polyp was noted in the mid ascending colon, was biopsied and submitted for histopathology. We will need to await that report before making recommendations for possible future surveillance colonoscopy. We then proceeded with EGD evaluation. The endoscope was inserted in the oral cavity and under direct visualization, esophagus was intubated. The endoscope was passed down the esophagus through the stomach and second portion of the duodenum. Careful inspection was made as the endoscope was withdrawn. The patient tolerated the procedure well. FINDINGS: The posterior pharynx, arytenoid aperture, true and false vocal folds were unremarkable. The proximal and mid esophagus were unremarkable. There is evidence for small sliding hiatal hernia with mild erythema noted at the Z line, but no evidence for erosive esophagitis or Brumfield's change. A biopsy was obtained from the GE junction and submitted for histopathology. No evidence for extrinsic compression was noted. The cardia of the stomach was unremarkable. Present in the proximal fundus was 1 small benign fundal polyp. The remainder of the fundus was unremarkable. There is some mitral antral erythema present and one small duodenal bulb erosion with no visible vessel formation. The duodenal bulb and second portion of duodenum were otherwise unremarkable. A biopsy from the antrum was obtained and submitted for Helicobacter and histopathology evaluation. ASSESSMENT: 1. One small duodenal erosion was present with some mild antral erythema. Biopsies were obtained and submitted for Helicobacter evaluation. We would advocate eradication if it is present. The patient was advised to abstain from aspirin and nonsteroidal therapy. 2. Small hiatal hernia was present without evidence for obstruction, the likely cause of this patient's intermittent dysphagia. Discussed the importance of careful attention to mastication, drinking fluids with meals. There is no evidence for erosive esophagitis, so I did not advocate acid blocking therapy at this time other than p.r.n. antacid therapy for heartburn, which the patient reports she rarely has. I thank you for the referral of this pleasant lady. Job ID: [id number] DocumentID: [id number] Dictated Date: 08/21/2019 11:55:19 Regional Retail Sales Manager Date: 08/21/2019 22:15:28 Dictated By: NAIDA RIVERA MD
== END 2019-08-21 11:10 | disposition home or self-care (01) ==
LOC: ENDO 08:22
PROVIDERS: ATTEND Internal Medicine
DX: D12.2 Benign neoplasm of ascending colon (principal); K63.89 Other specified diseases of intestine; K29.50 Unspecified chronic gastritis without bleeding; K57.30 Diverticulosis of large intestine without perforation or abscess without bleeding; K21.0 Gastro-esophageal reflux disease with esophagitis; K31.7 Polyp of stomach and duodenum; K26.9 Duodenal ulcer, unspecified as acute or chronic, without hemorrhage or perforation; K44.9 Diaphragmatic hernia without obstruction or gangrene; I10 Essential (primary) hypertension; Z88.1 Allergy status to other antibiotic agents; Z79.899 Other long term (current) drug therapy; Z80.0 Family history of malignant neoplasm of digestive organs
CPT/HCPCS: 88305

== ENCOUNTER → 2021-10-12 | Outpatient (CLI) | payer MEDICARE, OTHER ==
[~2021-10-12] MED LIST changes: +ACHYD1T PO; +ASPI-1238 PO; -ASPI-983 PO; +CATHETER FLUSH 10 ML SYR IV PRN; +HOLD METFORMIN - RECEIVED CONTRAST 20 ML VIAL IV SCH; -HYDR-3820 PO; +IOHEXOL 350 MG/ML 100 ML (OMNIPAQUE 350) VIAL IV ONE; +NS 100 ML (IVPB) BAG IV ONE; -POLY17PO31 PO; +POLY17PO54 PO; +SCOP1PAT10 TOP; -SCOP1PAT11 TOP
[2021-10-12 10:30] LABS: HEMATOCRIT 42 % (35-52); HEMOGLOBIN 13.7 g/dL (11.5-16.0); MEAN CORPUSCULAR HEMOGLOBIN 30 pg (25-34); MEAN CORPUSCULAR HGB CONC 32 g/dL (32-36); MEAN CORPUSCULAR VOLUME 93 fL (80-99); PLATELET COUNT 229 10^3/uL (130-400); WHITE BLOOD COUNT 12.1 10^3/uL (4.3-11.0)
[2021-10-12 10:51] LABS: ALBUMIN 3.9 GM/DL (3.2-4.5); BILIRUBIN,TOTAL 0.9 MG/DL (0.1-1.0); CALCIUM 10.2 MG/DL (8.5-10.1); CREATININE SERUM 0.84 MG/DL (0.60-1.30); POTASSIUM 4.1 MMOL/L (3.6-5.0); TOTAL PROTEIN 7.8 GM/DL (6.4-8.2)
--- NOTE | 2021-10-12 13:34 | Diagnostic Imaging Report ---
PROCEDURE: CT chest with contrast, CT abdomen and pelvis with and without contrast. TECHNIQUE: Pre and post intravenous contrast axial imaging of the abdomen and pelvis and post contrast axial imaging of the chest were performed. Auto Exposure Controls were utilized during the CT exam to meet ALARA standards for radiation dose reduction. INDICATION: Right breast mass. COMPARISON: Correlation is made with prior CT chest from 12/22/[address] abdomen and pelvis study from 11/01/2017. CT CHEST: There is a large mass which appears to be centered within the right pectoralis musculature measuring 4.2 x 4.0 cm. This has an enhancing periphery with some low density centrally. No axillary lymphadenopathy is seen. No internal mammary lymphadenopathy is detected. No definite mediastinal or hilar lymphadenopathy is detected. A left apical nodule previously described is stable. Second tiny nodule in the left upper lobe more posteriorly and laterally is stable. Small nodular densities in the right middle lobe are stable. Tiny nodule in the inferior right lower lobe appears stable. No infiltrates or masses are seen. IMPRESSION: 1. There is a large mass which appears to be centered within the right pectoralis musculature, posterior to the right breast. No definite thoracic lymphadenopathy is seen. There are numerous pulmonary nodules which appear to be stable dating back to 2018. CT ABDOMEN AND PELVIS: No liver mass is detected. Gallbladder is unremarkable. There is no biliary ductal dilatation. There appears to be a cyst arising from the body of the pancreas measuring 15 mm. Smaller cyst near the pancreatic tail measures 7 mm. Spleen is unremarkable. No adrenal mass is detected. The kidneys contain renal sinus cysts. There is also a 7 mm nonobstructing calculus in the left kidney. Aorta is nonaneurysmal. Bowel loops are nonobstructed. There is extensive diverticulosis of the sigmoid colon and moderate diverticulosis of the descending colon, but no evidence of acute diverticulitis. No free fluid or fluid collection is seen. No abdominal or pelvic lymphadenopathy is identified. The bladder is unremarkable. The uterus appears to be absent. Very small fat-containing umbilical hernia is noted. IMPRESSION: 1. Bilateral renal sinus cysts as well as nonobstructing left-sided nephrolithiasis. 2. Uncomplicated diverticulosis. 3. No evidence of abdominal or pelvic lymphadenopathy or metastatic disease. 4. Pancreatic cysts. 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 Follow-up to confirm stability could be performed. Dictated by: Dictated on workstation # [id number]
== END ==
LOC: RAD 11:15
PROVIDERS: ATTEND Surgery
DX: N20.0 Calculus of kidney (principal); N28.1 Cyst of kidney, acquired; K57.30 Diverticulosis of large intestine without perforation or abscess without bleeding; K86.2 Cyst of pancreas; N63.10 Unspecified lump in the right breast, unspecified quadrant
CPT/HCPCS: 36415; 71260; 74178; 80053; 83615; 85027